=== PATIENT | female | born 1940 | race Caucasian/White ===

== ENCOUNTER 2018-04-22 17:40 | Emergency (ER) | payer MEDICARE ==
[~2018-04-22] VITALS: Ht 162.6 cm; Wt 44.9 kg
[2018-04-22 18:54] LABS: BASOPHILS ABSOLUTE AUTO 0.05 K/mm3 (0.00-0.23); BASOPHILS PERCENT AUTO 0 % (0-2); EOSINOPHILS ABSOLUTE AUTO 0.05 K/mm3 (0.00-0.68); EOSINOPHILS PERCENT AUTO 0 % (0-6); Hemoglobin 13.7 g/dL (11.5-16.0); IMMATURE GRAN ABSOLUTE AUTO 0.05 K/mm3 (0.00-0.10); IMMATURE GRAN PERCENT AUTO 0 % (0-1); LYMPHOCYTES ABSOLUTE AUTO 1.09 K/mm3 (0.84-5.20); LYMPHOCYTES PERCENT AUTO 8 % (21-46); MONOCYTES ABSOLUTE AUTO 0.96 K/mm3 (0.16-1.47); MONOCYTES PERCENT AUTO 7 % (4-13); Mean Corpuscular HGB 32.3 pg (26.0-34.0); Mean Corpuscular HGB Conc 32.6 g/dL (31.5-36.5); Mean Corpuscular Volume 99 fL (80-100); Mean Platelet Volume 9.8 fL (9.1-12.4); NEUTROPHILS ABSOLUTE AUTO 11.29 K/mm3 (1.96-9.15); NEUTROPHILS PERCENT AUTO 84 % (41-73); Platelet Count 191 K/mm3 (150-400); RDW Coefficient Variation 12.7 % (11.7-14.2); RDW Standard Deviation 46.7 fL (35.1-46.3); Red Blood Cell Count 4.24 M/mm3 (3.80-5.20); White Blood Cell Count 13.49 K/mm3 (4.00-11.30)
[2018-04-22 19:22] LABS: Alanine Aminotransfer (ALT/SGP 17 U/L (12-78); Albumin/Globulin Ratio 1.2 (0.8-1.8); Alk Phos 62 U/L (50-136); Anion Gap 8 mmol/L (6-16); Aspartate Aminotrans (AST/SGOT 14 U/L (12-37); Bilirubin, Total 0.9 mg/dL (0.1-1.0); Blood Urea Nitrogen 11 mg/dL (8-24); Bun/Creatinine Ratio 16.4 (12.0-20.0); CO2, Blood 25 mmol/L (21-32); Calcium, Blood 8.8 mg/dL (8.5-10.1); Chloride, Blood 103 mmol/L (98-108); Creatinine, Blood 0.67 mg/dL (0.40-1.00); Globulin, Blood 3.2 g/dL (2.2-4.0); Glomerular Filtration Rate >60 (60-); Glucose, Blood 122 mg/dL (70-99); Potassium, Blood 3.5 mmol/L (3.5-5.5); Sodium, Blood 136 mmol/L (136-145); Total Protein, Blood 7.2 g/dL (6.4-8.2)
[2018-04-22 19:54] LABS: Source, Urine Clean Catch
[2018-04-22 19:59] LABS: Appearance, Urine Turbid (Clear); Bilirubin, Urine Neg (Neg); Blood, Urine 5+ (Neg); Color, Urine Brown (P-Yellow); Glucose Qualitative, Urine Neg (Neg); Ketones, Urine 2+ (Neg); Leukocyte Esterase, Urine 3+ (Neg); Nitrite, Urine Pos (Neg); Protein, Urine 4+ (Neg); Urobilinogen, Urine NORM (Normal)
[2018-04-22 20:06] LABS: Red Blood Cells, Urine TNTC /hpf (0-2); White Blood Cells, Urine TNTC /hpf (0-5)
[2018-04-22 20:07] LABS: Bacteria Not Seen /hpf; Squamous Epithelial Cells Few /hpf (Few)
[2018-04-22] MEDS ORDERED: Betoptic S10 ML (21:35)
[2018-04-22] MEDS ORDERED: STIOLTO RESPIMAT4 GM INH (21:35)
[2018-04-22] MEDS ORDERED: ALBU90OI6 (21:36)
[2018-04-22] MEDS ORDERED: FLOVENT (21:36)
[2018-04-22] MEDS ORDERED: LUTEIN (21:44)
[2018-04-22] MEDS ORDERED: VITAMIN D (21:44)
[2018-04-22] MEDS ORDERED: MULTIVITAMIN (21:44)
[2018-04-22] MEDS ORDERED: Vibramycin100 MG PO (23:15)
[2018-04-22] MEDS ORDERED: Norco 5-325 Ta1 EACH PO (23:15)
[2018-04-22] MEDS ORDERED: Diflucan100 MG PO (23:15)
== END 2018-04-22 23:36 | disposition home or self-care (01) ==
LOC: ER 17:40
PROVIDERS: Physician Assistant
DX: N39.0 Urinary tract infection, site not specified (principal); Z88.8 Allergy status to other drugs, medicaments and biological substances; Z88.1 Allergy status to other antibiotic agents; Z79.899 Other long term (current) drug therapy
CPT/HCPCS: 36415; 80053; 81001; 85025; 87077; 87086; 87186; 99283

== ENCOUNTER → 2018-11-08 | Outpatient (CLI) | payer MEDICARE ==
[~2018-11-08] MED LIST: ALBU90OI6; Betoptic S10 ML; Diflucan100 MG PO; FLOVENT; LUTEIN; MULTIVITAMIN; Norco 5-325 Ta1 EACH PO; STIOLTO RESPIMAT4 GM INH; VITAMIN D; Vibramycin100 MG PO
[2018-11-08 18:17] LABS: BASOPHILS ABSOLUTE AUTO 0.05 K/mm3 (0.00-0.23); BASOPHILS PERCENT AUTO 1 % (0-2); EOSINOPHILS ABSOLUTE AUTO 0.09 K/mm3 (0.00-0.68); EOSINOPHILS PERCENT AUTO 1 % (0-6); Hematocrit 40.7 % (33.0-51.0); Hemoglobin 14.1 g/dL (11.5-16.0); IMMATURE GRAN ABSOLUTE AUTO 0.03 K/mm3 (0.00-0.10); IMMATURE GRAN PERCENT AUTO 0 % (0-1); LYMPHOCYTES ABSOLUTE AUTO 1.09 K/mm3 (0.84-5.20); LYMPHOCYTES PERCENT AUTO 16 % (21-46); MONOCYTES ABSOLUTE AUTO 1.01 K/mm3 (0.16-1.47); MONOCYTES PERCENT AUTO 14 % (4-13); Mean Corpuscular HGB 32.2 pg (26.0-34.0); Mean Corpuscular HGB Conc 34.6 g/dL (31.5-36.5); Mean Corpuscular Volume 93 fL (80-100); Mean Platelet Volume 9.9 fL (9.1-12.4); NEUTROPHILS ABSOLUTE AUTO 4.76 K/mm3 (1.96-9.15); NEUTROPHILS PERCENT AUTO 68 % (41-73); Platelet Count 216 K/mm3 (150-400); RDW Coefficient Variation 12.6 % (11.7-14.2); Red Blood Cell Count 4.38 M/mm3 (3.80-5.20); White Blood Cell Count 7.03 K/mm3 (4.00-11.30)
[2018-11-08 18:29] LABS: Anion Gap 10 mmol/L (6-16); Blood Urea Nitrogen 12 mg/dL (8-24); CO2, Blood 27 mmol/L (21-32); Chloride, Blood 95 mmol/L (98-108); Glomerular Filtration Rate >60 (60-); Glucose, Blood 131 mg/dL (70-99); Potassium, Blood 3.4 mmol/L (3.5-5.5); Sodium, Blood 132 mmol/L (136-145)
[2018-11-08 18:34] LABS: Troponin I <0.017 ng/mL (0.000-0.040)
== END | disposition home or self-care (01) ==
LOC: LAB SHORT 18:10 → LAB EV 18:10
PROVIDERS: Physician Assistant Surgical
DX: R53.83 Other fatigue (principal); N39.0 Urinary tract infection, site not specified
CPT/HCPCS: 80048; 84484; 85025; 87086; 87147

== ENCOUNTER → 2020-07-02 | Outpatient (CLI) | payer MEDICARE | END | disposition home or self-care (01) | LOC: LAB EV 14:46 → LAB SHORT 14:46 | DX: N39.0 Urinary tract infection, site not specified (principal) | CPT/HCPCS: 87086 ==

== ENCOUNTER → 2021-01-15 | Outpatient (CLI) | payer MEDICARE | END | disposition home or self-care (01) | LOC: LAB SHORT 17:21 → LAB 17:21 | DX: J02.9 Acute pharyngitis, unspecified (principal) | CPT/HCPCS: 87081 ==

== ENCOUNTER 2022-01-19 16:24 | Inpatient (IN) | payer MEDICARE ==
[~2022-01-19] VITALS: Ht 160 cm; Wt 44.7 kg
[~2022-01-19 16:24] MED LIST changes: -MULTIVITAMIN; +MULTIVITAMIN PO; -VITAMIN D; +VITAMIN D PO
[2022-01-19 17:13] LABS: BASOPHILS ABSOLUTE AUTO 0.12 K/mm3 (0.00-0.23); BASOPHILS PERCENT AUTO 1 % (0-2); EOSINOPHILS ABSOLUTE AUTO 0.08 K/mm3 (0.00-0.68); EOSINOPHILS PERCENT AUTO 1 % (0-6); Hematocrit 44.7 % (33.0-51.0); Hemoglobin 15.5 g/dL (11.5-16.0); IMMATURE GRAN ABSOLUTE AUTO 0.06 K/mm3 (0.00-0.10); IMMATURE GRAN PERCENT AUTO 0 % (0-1); LYMPHOCYTES ABSOLUTE AUTO 1.75 K/mm3 (0.84-5.20); LYMPHOCYTES PERCENT AUTO 13 % (21-46); MONOCYTES ABSOLUTE AUTO 1.03 K/mm3 (0.16-1.47); MONOCYTES PERCENT AUTO 8 % (4-13); Mean Corpuscular HGB 32.3 pg (26.0-34.0); Mean Corpuscular HGB Conc 34.7 g/dL (31.5-36.5); Mean Corpuscular Volume 93 fL (80-100); Mean Platelet Volume 9.6 fL (9.1-12.4); NEUTROPHILS PERCENT AUTO 77 % (41-73); Platelet Count 424 K/mm3 (150-400); RDW Coefficient Variation 12.2 % (11.7-14.2); RDW Standard Deviation 42.1 fL (35.1-46.3); White Blood Cell Count 13.34 K/mm3 (4.00-11.30)
[2022-01-19 17:28] LABS: Albumin, Blood 4.1 g/dL (3.4-5.0); Albumin/Globulin Ratio 1.1 (0.8-1.8); Bilirubin, Total 0.7 mg/dL (0.1-1.0); Bun/Creatinine Ratio 33.3 (12.0-20.0); Calcium, Blood 9.2 mg/dL (8.5-10.1); Creatinine, Blood 0.45 mg/dL (0.40-1.00); Globulin, Blood 3.6 g/dL (2.2-4.0); Potassium, Blood 4.5 mmol/L (3.5-5.5); Total Protein, Blood 7.7 g/dL (6.4-8.2)
[2022-01-19 23:05] LABS: Influenza A, PCR NEGATIVE (NEGATIVE); Influenza B, PCR NEGATIVE (NEGATIVE); Resp Syncytial Virus, PCR NEGATIVE (NEGATIVE); SARS-Cov-2 (COVID-19) PCR, MMC NEGATIVE (NEGATIVE)
[2022-01-20] MEDS ORDERED: VITAMIN D310 MC4 (01:48)
[2022-01-20] MEDS ORDERED: PRESERVISION A1 EAC2 (01:49)
[2022-01-20] MEDS ORDERED: Vitamin C100 M1 PO (01:49)
--- NOTE | 2022-01-20 04:31 | NUR ---
NEW ADMIT FROM ED. A&OX4. VSS. ASSIST X 1 TO BEDSIDE COMMODE. SOB AT REST AND ON EXERTION. 95% ON 3L NC. HAS TELEMETRY, TACHYCARDIC 107 TO 117. C/O PAIN TO MID AND LOWER BACK. PRN TRAMADOL AND TYLENOL GIVEN. BED ALARM ON.
[2022-01-20 04:36] LABS: BASOPHILS ABSOLUTE AUTO 0.02 K/mm3 (0.00-0.23); BASOPHILS PERCENT AUTO 0 % (0-2); EOSINOPHILS PERCENT AUTO 0 % (0-6); Hemoglobin 14.6 g/dL (11.5-16.0); IMMATURE GRAN ABSOLUTE AUTO 0.05 K/mm3 (0.00-0.10); IMMATURE GRAN PERCENT AUTO 1 % (0-1); LYMPHOCYTES ABSOLUTE AUTO 0.49 K/mm3 (0.84-5.20); LYMPHOCYTES PERCENT AUTO 5 % (21-46); MONOCYTES ABSOLUTE AUTO 0.03 K/mm3 (0.16-1.47); MONOCYTES PERCENT AUTO 0 % (4-13); Mean Corpuscular HGB 31.6 pg (26.0-34.0); Mean Corpuscular Volume 93 fL (80-100); Mean Platelet Volume 9.7 fL (9.1-12.4); NEUTROPHILS ABSOLUTE AUTO 10.27 K/mm3 (1.96-9.15); NEUTROPHILS PERCENT AUTO 95 % (41-73); Platelet Count 367 K/mm3 (150-400); RDW Coefficient Variation 12.1 % (11.7-14.2); RDW Standard Deviation 41.6 fL (35.1-46.3); Red Blood Cell Count 4.62 M/mm3 (3.80-5.20); White Blood Cell Count 10.86 K/mm3 (4.00-11.30)
[2022-01-20 04:53] LABS: Bun/Creatinine Ratio 38.2 (12.0-20.0); Calcium, Blood 9.3 mg/dL (8.5-10.1); Creatinine, Blood 0.42 mg/dL (0.40-1.00); Potassium, Blood 4.4 mmol/L (3.5-5.5)
--- NOTE | 2022-01-20 16:22 | NUR ---
SHIFT SUMMARY PATIENT IS ALERT AND ORIENTED. PATIENT HAS HAD NO ACUTE EVENTS THIS SHIFT. PATIENT HAS HAD NO COMPLAINTS OF PAIN , SOB, PATIENT HAS HAD NAUSEA AND FEELINGS OF VOMITTING. PATIENT IS ADMITTED FOR COPD EXACERBATION. PATIENT IS ON 3L NC WHICH IS HER BASELINE. PATIENT IS A STANDBY ASSIST. BED IN LOCKED AND LOWEST POSITION. CALL LIGHT IN PLACE. WILL MONITOR UNTIL SHIFT CHANGE.
[2022-01-20 18:31] LABS: Bun/Creatinine Ratio 33.1 (12.0-20.0); Calcium, Blood 9.3 mg/dL (8.5-10.1); Creatinine, Blood 0.33 mg/dL (0.40-1.00); Potassium, Blood 4.6 mmol/L (3.5-5.5)
--- NOTE | 2022-01-20 18:43 | NUR ---
NURSE NOTE NOTIFIED DR NAPOLES ABOUT CRITICAL LOW SODIUM OF 119. RECEIVED ADDITIONAL ORDERS AND PUT NEW ORDERS IN. DR NAPOLES WILL TALK TO NURSING ALIGNMENT SPECIALIST TO POSSIBLE PCU TRANSFER.
--- NOTE | 2022-01-20 19:33 | NUR ---
PROFESSOR OF BIOLOGICAL SCIENCES INITIATION SEE PROFESSOR OF BIOLOGICAL SCIENCES INITIATION INTERVENTION
[2022-01-20 20:09] LABS: Bun/Creatinine Ratio 25.1 (12.0-20.0); Creatinine, Blood 0.44 mg/dL (0.40-1.00); Phosphorus, Blood 2.9 mg/dL (2.5-4.9); Potassium, Blood 4.7 mmol/L (3.5-5.5)
[2022-01-20 23:45] LABS: Creatinine, Blood 0.43 mg/dL (0.40-1.00); Potassium, Blood 4.5 mmol/L (3.5-5.5)
--- NOTE | 2022-01-21 01:18 | NUR ---
PT. TRANSFERRED TO ICU A RAPID RESPONSE BECAUSE PT. WAS NOT RESPONSIVE ON MEDICAL FLOOR. PT. IS ON 3L NC WHICH IS BASELINE AND HAS VS WNL. PT. IS NOT RESPONDING TO VERBAL OR PHYSICAL STIMULI.
[2022-01-21 04:05] LABS: Magnesium, Blood 2.2 mg/dL (1.6-2.4)
[2022-01-21 04:06] LABS: Bun/Creatinine Ratio 30.7 (12.0-20.0); Calcium, Blood 9.1 mg/dL (8.5-10.1); Creatinine, Blood 0.42 mg/dL (0.40-1.00); Potassium, Blood 4.5 mmol/L (3.5-5.5)
--- NOTE | 2022-01-21 05:37 | NUR ---
SHIFT SUMMARY: PT. CAME IN OVERNIGHT SHORTLY AFTER SHIFT CHANGE ALTERED AND NOT RESPONDING TO VERBAL DIRECTIONS. PT. HAD BEEN GIVEN A MEDICATION ON THE FLOOR AND BECAME UNRESPONSIVE. PT. ALSO HAD A SODIUM LEVEL OF 119 UPON ARRIVAL, WHICH HAS SINCE BEEN CORRECTED TO 130 WITH NS. PT. IS NOW A&0 X4 AND IS NOT HAVING ANY PERIODS OF ALTERED STATUS. PT. IS STILL ON 3L NC WHICH IS BASELINE AT HOME AND OTHERWISE HAS NO COMPLAINTS AT THIS TIME.
--- NOTE | 2022-01-21 08:30 | NUR ---
AM NOTE... ASSUMED CARE OF PT AT 0700 THE PT IS A&Ox4 AND SBA UP TO THE [facility]. THE PT IS ON 3L NC WITH O2 SATS>90% L/S COARSE T/O DIM IN THE BASES, RR IS IN THE 20'S. THE PT IS IN SINUS TACH IN THE 100'S-110'S. BP IS STABLE. NO EDEMA IS NOTED ON ASSESSMENT. BT PRESENT AND HYPOACTIVE ABD IS SOFT AND NONTENDER TO PALPATION. THE PT CURRENTLY DENIES ANY N/V. THE PT WAS ABLE TO AMBULATE TO THE [facility] AND THEN BACK TO BED WITH MINIMAL EFFORT. THE PT DID NEED A FEW MINUTES TO RECOVER FROM SOB WITH EXERTION. THE PT TOLD THIS RN THAT THE INSIDE OF HER MOUTH HURT, UPON ASSESSMENT THIS RN NOTED WHITE PATCHES T/O HER MOUTH AND THE INSIDE OF HER CHEEKS. WILL CONITNUE TO MONITOR.
[2022-01-21 09:25] LABS: Bun/Creatinine Ratio 31.8 (12.0-20.0); Calcium, Blood 9.4 mg/dL (8.5-10.1); Creatinine, Blood 0.47 mg/dL (0.40-1.00); Potassium, Blood 4.6 mmol/L (3.5-5.5)
[2022-01-21 12:55] LABS: Bun/Creatinine Ratio 37.5 (12.0-20.0); Calcium, Blood 9.2 mg/dL (8.5-10.1); Creatinine, Blood 0.48 mg/dL (0.40-1.00); Potassium, Blood 4.7 mmol/L (3.5-5.5)
--- NOTE | 2022-01-21 15:31 | NUR ---
PT TRANSFER.... PT IS TO TRANSFER TO THE MEDICAL FLOOR. REPORT GIVEN TO MEDICAL FLOOR RN. THE PT'S VS STABLE AT THIS TIME. ALL OF THE PT'S BELONGINGS HAVE BEEN PACKED TO BE SENT WITH THE PT. PT IS FINISHING HER LUNCH AND THEN WILL BE TAKEN TO HER NEW ROOM 306. FAMILY HAS BEEN NOTIFIED OF THE TRANSFER. WILL CONTINUE TO MONITOR UNTIL PT TRANSFER TO MEDICAL FLOOR.
--- NOTE | 2022-01-21 17:01 | NUR ---
PT UPDATE... PRIOR TO THE PT'S TRANSFER TO MEDICAL FLOOR THE PT REQUESTED TO USE THE BSC. THE PT WAS SBA TO THE BSC, ONCE ON THE BSC THE PT'S HR INCREASED TO THE 150'S-160'S SINUS TACH. THE PT HAD INCREASED SOB BUT DENIED ANY CHEST PAIN/PALPITATIONS. THE PT'S O2 SATS WERE 88% BUT RECOVERED WITH PURSED LIP BREATHING. ONCE BACK INTO BED THE PT'S HR DID NOT QUICKLY RECOVER LIKE PREVIOUS EPISODES OF THIS TACHYCARDIA SHE STARTED TO SUSTAIN SINUS TACH IN THE 130'S-140'S. PROVIDER WAS NOTIFIED, ORDERS FOR AN EKG WERE GIVEN AND AN EKG WAS OBTAINED. THE PT'S HEART RATE SLOWLY IMPROVED AND IS CURRENTLY SUSTAINING THE HIGH 120'S. BP IS STABLE. TRANSFER TO MEDICAL FLOOR ON STANDBY FOR A FEW HOURS TO SEE HOW THE PT RECOVERS. WILL CONTINUE TO MONITOR.
[2022-01-21 17:55] LABS: Bun/Creatinine Ratio 50.2 (12.0-20.0); Calcium, Blood 8.8 mg/dL (8.5-10.1); Creatinine, Blood 0.44 mg/dL (0.40-1.00); Potassium, Blood 4.5 mmol/L (3.5-5.5)
--- NOTE | 2022-01-21 18:30 | NUR ---
SHIFT SUMMARY.... THE PT IS NO LONGER MEDICAL STATUS D/T THE EPISODE OF HIGH HEART RATE. PROVIDER NOTIFIED AND CHANGED TO PCU STATUS. THE PT'S VS STABLE. WILL CONTINUE TO MONITOR.
--- NOTE | 2022-01-21 19:31 | NUR ---
ASSUMED CARE. AOX3. FAMILY JUST LEFT FOR THE EVENING. DENIES ANY PAIN OR DISCOMFORT. ON 3L NC WITH SATS MID 90'S. TACHYCARDIC IN THE 110-120'S. DENIES ANY CHEST PAIN OR DISCOMFORT. YING WILKES IN ROOM FOR PLACEMENT OF IV. TACHYPNEA IN THE 20-30'S.
--- NOTE | 2022-01-21 20:15 | NUR ---
SPOKE TO DR. BUCKLEY R/T SODIUM, TACHYCARDIA, HYPERTENSTION AND ORDER FOR FLUIDS. DR. BUCKLEY DOES NOT WANT TO ORDER FLUIDS AT THIS TIME SHE FEELS FLUIDS EARLIER TODAY DROPPED HER SODIUM BACK DOWN. FOR NOW WE ARE TO MONITOR AND SEE IF HER SODIUM COMES UP ON ITS OWN. REPEAT SODIUM DRAW ORDERED. MONITOR BLOOD PRESSURE AND HR.
--- NOTE | 2022-01-21 22:25 | NUR ---
PT UP TO BSC AND BACK TO BED, DURING AT WHICH HER HR JUMPED TO 160, SOB NOTED, AND RECOVERY WAS ESTIMATED [address] BUCKLEY REGARDING TACHYCARDIA, ACTIVITY INTOLERACE. PT DOES REPORT SOME ANXIETY AND INABILITY TO SLEEP. GAVE MELATONIN. PLAN IS TO SEE IF THAT WORKS IF NOT TO GIVE HER A CALL BACK. DR. BUCKLEY DID STOP BY ROOM TO TALK WITH THE PATIENT.
[2022-01-22 03:34] LABS: Bun/Creatinine Ratio 42.7 (12.0-20.0); Calcium, Blood 8.9 mg/dL (8.5-10.1); Creatinine, Blood 0.45 mg/dL (0.40-1.00); Magnesium, Blood 2.1 mg/dL (1.6-2.4); Potassium, Blood 4.4 mmol/L (3.5-5.5)
--- NOTE | 2022-01-22 05:37 | NUR ---
SHIFT SUMMARY: AOX3. MILD ANXIETY AT START OF SHIFT THAT CALMED DOWN AFTER TAKING MELATONIN. LS COARSE WITH DIM BASES, OCCATIONAL COUGH, NO PRODUCTION TONIGHT. DYSPNEA WITH EXERTION, ACTIVITY INTOLERANCE NOTED. HR WILL RAISE TO 160'S WITH TRANSFER TO [facility]. 130-140'S SOMETIMES WHEN SHE MOVES IN BED. SINCE SHE TOOK MELATONIN HR HAS DECREASED TO 80-90'S. O2 WAS INCREASED TO 5L NC WHEN SHE SLEPT BUT NOW IS BACK DOWN TO 3L. NEW IV PLACED TO LEFT UPPER ARM. SODIUM REMAINS AT 130. NO OTHER ACUTE CHANGES TO NOTE. CALL LIGHT IN REACH.
--- NOTE | 2022-01-22 16:31 | NUR ---
SHIFT SUMMARY NO ACUTE CHANGES THIS SHIFT. PT REMAINS ALERT AND ORIENTED WHEN AWAKE. PT WITH PERIODS OF NAPPING THIS AFTERNOON. PT WITH VISITORS IN AND OUT THROUGHOUT THE DAY. VITAL SIGNS STABLE. PT ON 3L O2 NC. PT REPORTS DYSPNEA WITH EXERTION TO TOILET, BUT SPO2 REMAINS STABLE WITH AMBULATION. IV SALINE LOCKED. PT ABLE TO REPOSITION SELF IN BED FOR COMFORT. WILL CONTINUE TO MONITOR AND REPORT OFF TO ONCOMING RN.
--- NOTE | 2022-01-22 19:40 | NUR ---
RECEIVED REPORT FROM CHUNG REGAN. PT IS MEDICAL STATUS BUT BEING MONITORED ON TELE STILL. SHE IS A&O X4, NO C/O PAIN. CURRENTLY ON 3L NC, WHICH IS BASELINE AT HOME. SHE IS A POSSIBLE DC TOMORROW.
--- NOTE | 2022-01-22 23:11 | NUR ---
PT C/O FEELING CONSIPATED- PRN MIRALAX AND COLACE GIVEN EARLIER IN THE SHIFT. PT STATED THAT SHE STARTED FEELING HER STOMACH CRAMP AND BELIEVED THAT SHE MAY HAVE A BLADDER INFECTION. C/O PAIN 8-11/26 AND REQUESTED SOMETHING "STRONGER" THAN TYLENOL. HEATING PAD APPLIED TO ABD. UPDATED DR. BUCKLEY ABOUT ALL OF THE INFORMATION FROM ABOVE. UA WAS ORDERED AND SOME TRAMADOL. TRAMADOL GIVEN PER EMAR. NEXT, PT ALSO REQUESTED A SUPPOSITORY TO HELP. WILL CONTINUE TO MONITOR
--- NOTE | 2022-01-23 | NUR ---
ATTEMPTED TO CALL DR. BUCKLEY TO UPDATE HER ABOUT PT. MD NOT AVAILABLE. WILL ATTEMPT TO CALL DR. GUERRIER
--- NOTE | 2022-01-23 01:00 | NUR ---
ATTEMPTED TO CALL DR. GUERRIER TO UPDATE ABOUT PT'S ABD PAIN. PT'S ABD IS DISTENDED BUT HAS BOWEL SOUNDS THROUGHOUT, SHE IS STILL C/O 9/10 PAIN AND CRAMPING, SHE'S NAUSEOUS BUT NOT VOMITTING.
--- NOTE | 2022-01-23 02:01 | NUR ---
PT LOOKS LIKE SHE'S RESTING MORE COMFORTABLY IN BED, REQUESTING BREATHING TREATMENT
--- NOTE | 2022-01-23 06:32 | NUR ---
SHIFT SUMMARY: PT A&O X4 BUT DID NOT SLEEP AT ALL. SHE REMAINS ON 3L NC WITH O2 SATS IN MID 90S. OTHER VS STABLE AT THIS POINT. PT C/O 8-10/10 ABDOMINAL PAIN THOUGHOUT THE NIGHT THAT WAS NOT RELIEVED BY ANYTHING. PRN MIRALAX, COLACE, DULCOLAX, TRAMADOL, AND A MINERAL OIL ENEMA WERE GIVEN PER MAR AND PT HAD A VERY SMALL HARD BM.
[2022-01-23 08:13] LABS: BASOPHILS ABSOLUTE AUTO 0.06 K/mm3 (0.00-0.23); BASOPHILS PERCENT AUTO 0 % (0-2); EOSINOPHILS ABSOLUTE AUTO 0.01 K/mm3 (0.00-0.68); EOSINOPHILS PERCENT AUTO 0 % (0-6); Hematocrit 44.9 % (33.0-51.0); Hemoglobin 15.4 g/dL (11.5-16.0); IMMATURE GRAN ABSOLUTE AUTO 0.18 K/mm3 (0.00-0.10); IMMATURE GRAN PERCENT AUTO 1 % (0-1); LYMPHOCYTES ABSOLUTE AUTO 0.86 K/mm3 (0.84-5.20); LYMPHOCYTES PERCENT AUTO 3 % (21-46); MONOCYTES ABSOLUTE AUTO 1.32 K/mm3 (0.16-1.47); MONOCYTES PERCENT AUTO 4 % (4-13); Mean Corpuscular HGB Conc 34.3 g/dL (31.5-36.5); Mean Corpuscular Volume 93 fL (80-100); Mean Platelet Volume 9.9 fL (9.1-12.4); NEUTROPHILS ABSOLUTE AUTO 27.59 K/mm3 (1.96-9.15); NEUTROPHILS PERCENT AUTO 92 % (41-73); Platelet Count 309 K/mm3 (150-400); RDW Coefficient Variation 12.1 % (11.7-14.2); Red Blood Cell Count 4.81 M/mm3 (3.80-5.20); White Blood Cell Count 30.02 K/mm3 (4.00-11.30)
--- NOTE | 2022-01-23 08:21 | NUR ---
REPORT TO MEDICAL FLOOR RN, ALL BELONGINGS GATHERED FOR TRANSFER.
[2022-01-23 08:27] LABS: Bun/Creatinine Ratio 47.7 (12.0-20.0); Creatinine, Blood 0.48 mg/dL (0.40-1.00); Potassium, Blood 4.4 mmol/L (3.5-5.5)
[2022-01-23 15:30] LABS: Base Excess Venous 12.3 mmol/L; Bicarbonate Venous 34.3 mmol/L (24.0-30.0); PCO2 Venous 47.3 mmHg (38-42); pH Blood Venous 7.49 (7.34-7.37)
[2022-01-24 03:44] LABS: Source, Urine Clean Catch
[2022-01-24 03:46] LABS: Bilirubin, Urine Neg (Neg); Blood, Urine 3+ (Neg); Glucose Qualitative, Urine Neg (Neg); Ketones, Urine 1+ (Neg); Leukocyte Esterase, Urine Neg (Neg); Nitrite, Urine Neg (Neg); Protein, Urine 2+ (Neg); Specific Gravity, Urine 1.005 (1.003-1.022); Urobilinogen, Urine NORM (Normal); pH, Urine 6.5 (5.0-8.0)
[2022-01-24 03:54] LABS: Appearance, Urine Clear (Clear); Bacteria Not Seen /hpf; Color, Urine Yellow (P-Yellow); Squamous Epithelial Cells Rare /hpf (Few); White Blood Cells, Urine Not Seen /hpf (0-5)
[2022-01-24 05:48] LABS: BASOPHILS PERCENT AUTO 0 % (0-2); EOSINOPHILS ABSOLUTE AUTO 0.01 K/mm3 (0.00-0.68); EOSINOPHILS PERCENT AUTO 0 % (0-6); Hematocrit 41.4 % (33.0-51.0); Hemoglobin 14.4 g/dL (11.5-16.0); IMMATURE GRAN ABSOLUTE AUTO 0.13 K/mm3 (0.00-0.10); IMMATURE GRAN PERCENT AUTO 1 % (0-1); LYMPHOCYTES ABSOLUTE AUTO 0.62 K/mm3 (0.84-5.20); LYMPHOCYTES PERCENT AUTO 2 % (21-46); MONOCYTES ABSOLUTE AUTO 0.79 K/mm3 (0.16-1.47); MONOCYTES PERCENT AUTO 3 % (4-13); Mean Corpuscular HGB 32.4 pg (26.0-34.0); Mean Corpuscular HGB Conc 34.8 g/dL (31.5-36.5); Mean Corpuscular Volume 93 fL (80-100); Mean Platelet Volume 10.4 fL (9.1-12.4); NEUTROPHILS ABSOLUTE AUTO 25.86 K/mm3 (1.96-9.15); NEUTROPHILS PERCENT AUTO 94 % (41-73); Platelet Count 209 K/mm3 (150-400); RDW Coefficient Variation 12.3 % (11.7-14.2); RDW Standard Deviation 41.8 fL (35.1-46.3); Red Blood Cell Count 4.45 M/mm3 (3.80-5.20); White Blood Cell Count 27.51 K/mm3 (4.00-11.30)
--- NOTE | 2022-01-24 06:15 | NUR ---
VP CUSTOMER SERVICE SUMMARY: A&Ox4. PLEASANT AND COOPERATIVE WITH CARE. CALLS APPROPRIATELY AND IS ABLE TO COMMUNICATE NEEDS. TELE SINUS TACH WITH RUN OF SVT; ON-CALL HOSPITALIST ORDERED LOPRESSOR 5MG IV. TELE MONITORING AND PT NOTED TO HAVE LOWERED SUSTAINED HR. ABDOMINAL IMAGING YESTERDAY YIELDED POSITIVE FOR SMALL BOWEL OBSTRUCTION. WILL HAVE SURGICAL CONSULT TODAY TO DETERMINE IF SURGERY IS RECOMMENDED. URINE SAMPLE OBTAINED AND SENT TO LAB. ABx CHANGED AND ADMINISTERED AT 0000 AND 0600. IV FENTANYL 25-50MCG Q4H PRN ORDERED FOR PAIN SINCE NPO AND UNABLE TO TAKE TRAMADOL. GIVEN TWO DOSES T/O SHIFT AND ONE DOSE OF REGLAN FOR NAUSEA/BLOATING. C/O ABDOMINAL PAIN. USING HEATING PAD. FLUIDS RUNNING @ 75mL/HR x 1.[address] ON COCCYX. MAINTAINING SPO2 >95% ON 3L O2 VIA NC. WILL REPORT TO ONCOMING RN.
[2022-01-24 06:21] LABS: Bun/Creatinine Ratio 35.2 (12.0-20.0); Calcium, Blood 9.1 mg/dL (8.5-10.1); Creatinine, Blood 0.6 mg/dL (0.40-1.00); Potassium, Blood 4.5 mmol/L (3.5-5.5)
[2022-01-24] MEDS ORDERED: LATA.005SO (15:59)
--- NOTE | 2022-01-24 18:07 | NUR ---
SUMMARY PT SITTING UP IN THE CHAIR AT THE BEDSIDE, PT HAS BEEN PLEASANT AND COOPERATIVE WITH CARE, MED PER EMAR FOR PAIN AND NAUSEA, FAMILY HAS BEEN IN TO VISIT, NO COMPLAINTS, VSS, WILL CONT TO MONITOR
--- NOTE | 2022-01-25 05:07 | NUR ---
CONSUMER EDUCATION SPECIALIST SUMMARY: A&Ox4. PLEASANT AND COOPERATIVE WITH CARE. CALLS APPROPRIATELY AND IS ABLE TO COMMUNICATE NEEDS EFFECTIVELY. STRUGGLED WITH NAUSEA AND DRY HEAVES T/O SHIFT. OFFERED NG TUBE DISCUSSED BY DR QUINONEZ AND SHE DECLINES. CALL TO DR WAYNE AND PRN ZOFRAN 4MG Q6H PRN ORDER OBTAINED AND ADMINISTERED. PRN FENTANYL IV GIVEN FOUR TIMES T/O SHIFT. LARGE BRUISE RIGHT ANTICUBITAL REGION D/T IV GOING BAD 01/23/22. IV IN LEFT FA WENT BAD THIS EVENING. CHUNG BOWSER PLACED POWERGLIDE IN DICK. PATENT AND FLUSHES. SALINE LOCKED. TELE SINUS TACH W/ PVCs BUT BACK DOWN TO SINUS RHYTHM. CONTINUES WITH BOWEL REST--ONLY CHIPS AND SIPS. O2 3L/MIN VIA NC. MEPILEX ON COCCYX REPLACED AND NEW PLACEMENT OF ONE ON BONY PROMINENCES OF SPINE ABOVE COCCYX. WILL REPORT TO ONCOMING RN.
--- NOTE | 2022-01-25 18:37 | NUR ---
SHIFT SUMMARY PATIENT MEDICATED X3 FOR PAIN, X3 FOR NAUSEA, DENIES SHORTNESS OF BREATH. PATIENT IS ON 3L VIA N/C. THIS IS BASELINE. PATIENT IS A SBA TO THE [facility]. PATIENT IS ON TELE, RUNNING ST IN THE LOW 100'S TODAY. PATIENT STARTED ON CLINIMIX INTO POWERGLIDE. PATIENT NPO EXCEPT FOR SIPS AND CHIPS. PATIENT UNABLE TO TOLERATE ANY PO MEDICATIONS TODAY. PATIENT HAVING INCREASED PAIN AND NAUSEA. PER DR. QUINONEZ, PLACE AND NG. PATIENT AGREEABLE. PATIENT TOLERATED VERY WELL. PLACED BY PAOLA CHARGE NURSE. AIR HEARD WHEN FLUSHED. CONNECTED TO LIS, IMMEDIATE RETURN OF 700MLS. PATIENT REPORTS FEELING LIKE SHE CANNOT SWALLOW AND THERE IS SOMETHING IN HER THROAT. NUMBING SPRAY AND JELLY WAS USED. EDUCATED PATIENT ON NG TUBE. PATIENT VISITED TODAY. PATIENT IS VERY PLEASANT AND COOPERATIVE WITH CARE.
--- NOTE | 2022-01-26 04:18 | NUR ---
SUMMARY A&OX4, COMPLAIN OF ABDOMINABLE PAIN THROUGHOUT NIGHT, IV INFUSING VOIDED WITH STANDBY ASSIST, PATIENT RESTING IN BED AT THIS TIME.
[2022-01-26 05:40] LABS: BASOPHILS ABSOLUTE AUTO 0.05 K/mm3 (0.00-0.23); BASOPHILS PERCENT AUTO 0 % (0-2); EOSINOPHILS ABSOLUTE AUTO 0.01 K/mm3 (0.00-0.68); EOSINOPHILS PERCENT AUTO 0 % (0-6); Hematocrit 38.7 % (33.0-51.0); Hemoglobin 13.2 g/dL (11.5-16.0); IMMATURE GRAN ABSOLUTE AUTO 0.23 K/mm3 (0.00-0.10); IMMATURE GRAN PERCENT AUTO 1 % (0-1); LYMPHOCYTES ABSOLUTE AUTO 0.69 K/mm3 (0.84-5.20); LYMPHOCYTES PERCENT AUTO 3 % (21-46); MONOCYTES ABSOLUTE AUTO 1.22 K/mm3 (0.16-1.47); MONOCYTES PERCENT AUTO 5 % (4-13); Mean Corpuscular HGB 32.2 pg (26.0-34.0); Mean Corpuscular HGB Conc 34.1 g/dL (31.5-36.5); Mean Corpuscular Volume 94 fL (80-100); Mean Platelet Volume 10.4 fL (9.1-12.4); NEUTROPHILS ABSOLUTE AUTO 23.12 K/mm3 (1.96-9.15); NEUTROPHILS PERCENT AUTO 91 % (41-73); Platelet Count 136 K/mm3 (150-400); RDW Coefficient Variation 12.5 % (11.7-14.2); RDW Standard Deviation 43.6 fL (35.1-46.3); White Blood Cell Count 25.32 K/mm3 (4.00-11.30)
[2022-01-26 06:05] LABS: Alanine Aminotransfer (ALT/SGP 22 U/L (12-78); Albumin, Blood 2.4 g/dL (3.4-5.0); Albumin/Globulin Ratio 0.7 (0.8-1.8); Alk Phos 75 U/L (50-136); Anion Gap 7 mmol/L (6-16); Aspartate Aminotrans (AST/SGOT 17 U/L (12-37); Bilirubin, Total 0.6 mg/dL (0.1-1.0); Blood Urea Nitrogen 19 mg/dL (8-24); Bun/Creatinine Ratio 41.9 (12.0-20.0); CO2, Blood 40 mmol/L (21-32); Calcium, Blood 8.8 mg/dL (8.5-10.1); Chloride, Blood 88 mmol/L (98-108); Creatinine, Blood 0.45 mg/dL (0.40-1.00); Globulin, Blood 3.6 g/dL (2.2-4.0); Glomerular Filtration Rate 98 (60-); Glucose, Blood 177 mg/dL (70-99); Magnesium, Blood 2.2 mg/dL (1.6-2.4); Potassium, Blood 2.9 mmol/L (3.5-5.5); Sodium, Blood 135 mmol/L (136-145); Triglycerides 110 mg/dL (30-160)
--- NOTE | 2022-01-26 18:42 | NUR ---
SHIFT SUMMARY ASSUMED CARE AT 1545. NO ACUTE CHANGES SINCE ASSUMING CARE. PATIENT IS ALERT, ORIENTED, ABLE TO MAKE HER NEEDS KNOWN. NG TUBE IN PLACE, LOW INT SUCTION. PICC LINE PLACED TODAY IN LEFT UPPER ARM. PATIENT IS A ONE PERSON STANDBY ASSIST TO THE COMMODE. ENCOURAGED OUT OF BED ACTIVITY TO THE CHAIR TOELRATED. CLINIMIX RUNNING PER ORDERS. BED LOW AND LOCKED, CALL LIGHT WITHIN REACH, WILL CONT TO MONITOR UNTIL REPORT GIVEN TO ONCOMING RN.
--- NOTE | 2022-01-27 04:26 | NUR ---
SHIFT SUMMARY PT HAS BEEN UP TO THE BEDSIDE COMMODE SEVERAL TIMES TO TRY AND HAVE A BM, NO BM, BUT SHE IS PASSING GAS. SHE IS CONTINUEING TO HAVE COPIOUS OUTPUT FROM HER NG TUBE. SHE HAS COMPLAINED OF ABD PAIN AND WAS MEDICATED PER MAR. PT HAS BEEN TOLERATING CLINAMIX AND ABX. SOME PT EDUCATION PROVIDED ON WHY PT MUST REMIN NPO. BED IN LOWEST POSITION AND CALL LIGHT IN REACH
[2022-01-27 06:07] LABS: BASOPHILS ABSOLUTE AUTO 0.04 K/mm3 (0.00-0.23); BASOPHILS PERCENT AUTO 0 % (0-2); EOSINOPHILS ABSOLUTE AUTO 0.05 K/mm3 (0.00-0.68); EOSINOPHILS PERCENT AUTO 0 % (0-6); Hematocrit 37.3 % (33.0-51.0); Hemoglobin 12.4 g/dL (11.5-16.0); IMMATURE GRAN PERCENT AUTO 1 % (0-1); LYMPHOCYTES ABSOLUTE AUTO 1.02 K/mm3 (0.84-5.20); LYMPHOCYTES PERCENT AUTO 5 % (21-46); MONOCYTES ABSOLUTE AUTO 2.18 K/mm3 (0.16-1.47); MONOCYTES PERCENT AUTO 10 % (4-13); Mean Corpuscular HGB 32.5 pg (26.0-34.0); Mean Corpuscular HGB Conc 33.2 g/dL (31.5-36.5); Mean Corpuscular Volume 98 fL (80-100); Mean Platelet Volume 10.7 fL (9.1-12.4); NEUTROPHILS ABSOLUTE AUTO 18.18 K/mm3 (1.96-9.15); NEUTROPHILS PERCENT AUTO 84 % (41-73); Platelet Count 121 K/mm3 (150-400); RDW Coefficient Variation 12.8 % (11.7-14.2); RDW Standard Deviation 45.4 fL (35.1-46.3); Red Blood Cell Count 3.82 M/mm3 (3.80-5.20); White Blood Cell Count 21.67 K/mm3 (4.00-11.30)
[2022-01-27 06:27] LABS: Albumin, Blood 2.4 g/dL (3.4-5.0); Albumin/Globulin Ratio 0.7 (0.8-1.8); Bilirubin, Total 0.5 mg/dL (0.1-1.0); Bun/Creatinine Ratio 50.3 (12.0-20.0); Calcium, Blood 8.8 mg/dL (8.5-10.1); Creatinine, Blood 0.44 mg/dL (0.40-1.00); Globulin, Blood 3.6 g/dL (2.2-4.0); Potassium, Blood 3.9 mmol/L (3.5-5.5)
--- NOTE | 2022-01-27 18:34 | NUR ---
PATIENT PAINFUL WITH BOWEL OBSTRUCTION. NG TUBE IN PLACE. RETURN IS BROWN/GREEN. TPN RUNNING AT 75. NEW TYPE OF TPN ORDERED THIS SHIFT- PATIENT WBC HIGH. IV ABX IN PLACE. COCCYX HAS PRESSURE AREA THAT WAS COVERED TO AVOID SKIN BREAKDOWN BUT PATIENT HAS HAD LOOSE FREQUENT DIARRHEA THIS SHIGT. DRESSING WERE CHANGED. AND THEN REMOVED WHEN LOOSE BM CONTINUED AND THEY BECAME SATURATED. PAIN IS CONTROLLED WITH PAIN MED, BUT PATIENT PAIN RETURNS QUICKLY. NAUSEA AND SOME SMALL EMISIS OCCUR, WITH STOMACH CRAMPS. REGLAN WAS GIVEN AND SOMEWHAT EFFECTIVE. HEART RATE TACKY, IRREGULAR. ATTEMPTING TO COLLECT SPUTUM STILL. PATIENT HAD SMALL BOWEL STUDY THIS SHIFT. SEE IMAGING.
--- NOTE | 2022-01-28 07:17 | NUR ---
SHIFT SUMMARY; PT WITH NO ACUTE CHANGES OVERNIGHT. PT REMIANS PAINFUL WITH BOWEL MOVEMENTS, NG TUBE IN PLACE. PT STATES THAT SHE HAS SHARP PAINS IN HER LOWER ABDOMEN AND HER LOWER BACK ACHES "LIKE LABORING". PT WITH A TOTAL VOLUME OF 775ML FROM HER NG TUBE. PPN REMAINED RUNNING IN THE PTS POWER PICC LINE. PT REQUESTED HER DILUADID Q4H, PT STATES SHE GETS GOOD REST FROM THE DILAUDID FOR ABOUT 3 HOURS. PT REMIANED ON 3L O2 VIA NC THROUGHOUT THE NIGHT WITH O2 SATS GREATER THAN 90%. PT WITH FREQUENT LOOSE STOOLS THROUGHOUT THE NIGHT. PT CURRENTLY RESTING IN BED WITH THE BED IN THE LOWEST POSITION AND THE CALL LIGHT AT THE BEDSIDE.
[2022-01-28 10:16] LABS: Mean Platelet Volume 10.6 fL (9.1-12.4); Platelet Count 142 K/mm3 (150-400)
--- NOTE | 2022-01-28 18:08 | NUR ---
PATIENT APPEARS TO BE DOING BETTER THIS SHIFT. NG TUBE WAS REMOVED THIS AM. DIET ADVANCED TO FULL LIQUID. SHE EATS ONLY SMALL AMOUNT, BUT APPEARS TO BE TOLERATING WELL. LS DIMINISHED, UNABLE TO COLLECT SPUTUM SAMPLE SHE ISN'T ABLE TO COUGH THE SPUTUM UP. BS HYPERACTIVE WITH SOME LOOSE BM AGAIN THIS SHIFT. TPN RUNNING AT 75. SPINAL PRESSURE AREA COVERED WITH DRESSING. IV DILAUDED GIVEN PER REQUEST EVERY 4 HOURS. PAIN IS IN LOWER BACK THIS SHIFT.
--- NOTE | 2022-01-29 04:17 | NUR ---
SHIFT SUMMARY; PT WITH NO ACUTE CHANGES OVERNIGHT. PT REMIANS ON 3L NC SATING >90%. PT TOLERATED FULL LIQUID DIET WELL THIS EVENING, PT DENIED N/V. PT CONTINUES TO REQUEST DILAUDID Q4H FOR ABDOMINAL/BACK PAIN, IT SEEMS THAT THE DILAUDID PROVIDES HER RELIEF, BUT WARES OFF QUICKLY. TPN IS STILL RUNNING AT 75ML/HR. PT IS CURRENTLY UP IN THE CHAIR WATCHING TV. THE CALL LIGHT IS IN THE PTS LAP.
[2022-01-29 05:58] LABS: BASOPHILS ABSOLUTE AUTO 0.11 K/mm3 (0.00-0.23); BASOPHILS PERCENT AUTO 0 % (0-2); EOSINOPHILS ABSOLUTE AUTO 0.17 K/mm3 (0.00-0.68); EOSINOPHILS PERCENT AUTO 1 % (0-6); Hemoglobin 12.5 g/dL (11.5-16.0); IMMATURE GRAN ABSOLUTE AUTO 0.47 K/mm3 (0.00-0.10); IMMATURE GRAN PERCENT AUTO 2 % (0-1); LYMPHOCYTES PERCENT AUTO 5 % (21-46); MONOCYTES PERCENT AUTO 11 % (4-13); Mean Corpuscular HGB 32.1 pg (26.0-34.0); Mean Corpuscular HGB Conc 32.1 g/dL (31.5-36.5); Mean Corpuscular Volume 100 fL (80-100); Mean Platelet Volume 10.5 fL (9.1-12.4); NEUTROPHILS ABSOLUTE AUTO 23.07 K/mm3 (1.96-9.15); NEUTROPHILS PERCENT AUTO 81 % (41-73); Platelet Count 151 K/mm3 (150-400); RDW Coefficient Variation 13.2 % (11.7-14.2); RDW Standard Deviation 49.1 fL (35.1-46.3); White Blood Cell Count 28.42 K/mm3 (4.00-11.30)
[2022-01-29 06:23] LABS: Bun/Creatinine Ratio 54.2 (12.0-20.0); Calcium, Blood 8.9 mg/dL (8.5-10.1); Creatinine, Blood 0.41 mg/dL (0.40-1.00)
--- NOTE | 2022-01-29 18:08 | NUR ---
SHIFT SUMMARY A&O X 4. VSS. TPN INFUSING INTO L UPPER ARM PICC LINE. PT WAS UP IN CHAIR FOR APPROX 2 HRS THIS MORNING. C/O PAIN MEDICATED PER EMAR WITH GOOD RESULTS. ADDED OXYCODONE FOR BREAKTHROUGH PAIN TO THE DILAUDID ALREADY ORDERED. PT C/O ABD PAIN AND BACK PAIN. SHE DENIED NAUSEA THIS SHIFT. SHE IS 1 PERSON MIN ASSISIT TO BSC WHEN SHE WANTS TO GET TO BSC OTHERWISE SHE IS INCONTINENT OF URINE. IS PLEASANT & COOPERATIVE WITH ALL CARE.
[2022-01-30 05:37] LABS: Hemoglobin 11.9 g/dL (11.5-16.0); Mean Corpuscular HGB 32.2 pg (26.0-34.0); Mean Corpuscular HGB Conc 33.1 g/dL (31.5-36.5); Mean Corpuscular Volume 97 fL (80-100); Mean Platelet Volume 10.5 fL (9.1-12.4); Platelet Count 169 K/mm3 (150-400); RDW Coefficient Variation 12.8 % (11.7-14.2); RDW Standard Deviation 45.5 fL (35.1-46.3); White Blood Cell Count 28.11 K/mm3 (4.00-11.30)
[2022-01-30 05:47] LABS: Albumin, Blood 1.9 g/dL (3.4-5.0); Anion Gap 4 mmol/L (6-16); Blood Urea Nitrogen 16 mg/dL (8-24); Bun/Creatinine Ratio 39.6 (12.0-20.0); CO2, Blood 38 mmol/L (21-32); Calcium, Blood 8.4 mg/dL (8.5-10.1); Chloride, Blood 91 mmol/L (98-108); Glomerular Filtration Rate 101 (60-); Glucose, Blood 141 mg/dL (70-99); Magnesium, Blood 2.1 mg/dL (1.6-2.4); Phosphorus, Blood 2.3 mg/dL (2.5-4.9); Sodium, Blood 133 mmol/L (136-145)
--- NOTE | 2022-01-30 07:44 | NUR ---
SHIFT SUMMARY; PT WAS NPO AFTER MIDNIGHT LAST NIGHT ASIDE FROM DRINKING ORAL CONTRAST FOR CT THIS MORNING. THE ORAL CONTRAST MADE THE PT NAUSEOUS, ZOFRAN WAS GIVEN. PT CONTINUES TO COMPLAIN OF ABDOMINAL PAIN AND LOWER BACK PAIN, DILAUDID, OXYCODONE AND TRAMADOL GIVEN LAST NIGHT WITH LITTLE RELIEF. PT RESTED IN BED ALL NIGHT LONG, STATED SHE WAS TOO WEAK TO USE BEDSIDE COMMODE SO SHE WAS INCONTINENT. PT IS CURRENTLY BACK IN ROOM FROM CT WITH AT BEDSIDE, THE BED IS IN THE LOWEST POSITION AND THE CALL LIGHT IS ON HER LAP.
[2022-01-30 10:48] LABS: International Normalized Ratio 1.05
--- NOTE | 2022-01-30 19:48 | NUR ---
SHIFT SUMMARY PT A&OX4 AND COOPERATIVE OF CARE. PT'S PAIN HAS BEEN DIFFICULT TO MANAGE. MEDICATED PER EMAR WITH LITTLE EFFICACY. PT HAD ADB DRAIN PLACED TODAY. DRAINING STAFFORD, THIN SECRETIONS. PT VERBALIZED ABD PAIN RELIEF WHEN RETURNING FROM PROCEDURE. PT WAS ABLE TO SLEEP FOR A COUPLE HOURS AFTER PROCEDURE. PT ATE VERY LITTLE. PT WAS ABLE TO SIT UP IN CHAIR IN AFTERNOON AND USE BEDSIDE COMMODE BEFORE RETURNING TO BED. PT HAS HAD FAMILY AT BEDSIDE DURING AFTERNOON. REPORT GIVEN TO SUPERVISOR SCREEN MAKING NURSE.
--- NOTE | 2022-01-31 05:20 | NUR ---
SUMMARY: PT A/OX4, CALLS APPROPRIATELY TO SPECIFY NEEDS AND IS PLEASANT AND COOPERATIVE W/CARE. SHE'S 1PA TO BSC W/TURN SCHEDULE MAINTAINED FOR SBD. PT APPEARS CACHECTIC W/PILLOWS PLACED TO BONY PROMINENCES AND MEPILEX IN PLACE TO COCCYX. PT HAD LOOSE STOOLS X2 AND HAS URGENCY TO VOID W/FREQUENCY. ATTENDS CHANGED PRN FOR X1 URINARY INCONTINENCE. CPN CONT'S INUSING AT 75 ML/HR VIA MADELAINE PICC AND IV ABX RECIEVED PER EMAR. SHE CONT'S TO REPORT ABDO AND LOW BACK PAIN. PRN TRAMADOL, NORCO AND DILAUDID RECIEVED FOR TEMPORARY RELIEF. AT ONE POINT SHE DESCRIBED MID UPPER ABDO PAIN THAT WAS SEEMINGLY EPIGASTRIC IN NATURE, GI COCKTAIL RX'D AND RECIEVED FOR GOOD EFFECT. URESIL DRAIN IS PATENT AND INTACT TO L.POSTERIOR FLANK, ACCORDIAN REMAINS COMPRESSED AND STAFFORD FOUL SMELLING DRAINAGE OBSERVED. SHE REMAINS ON 3L O2 VIA NC W/O S/S SOB OR RESP DISTRESS. NO ACUTE CHANGES, VSS/AFEBRILE. WCTM AND REPORT TO DAY. RN.
[2022-01-31 06:18] LABS: Bun/Creatinine Ratio 41.6 (12.0-20.0); Calcium, Blood 7.9 mg/dL (8.5-10.1); Creatinine, Blood 0.39 mg/dL (0.40-1.00); Magnesium, Blood 2.1 mg/dL (1.6-2.4); Phosphorus, Blood 3.1 mg/dL (2.5-4.9); Potassium, Blood 4.2 mmol/L (3.5-5.5)
--- NOTE | 2022-01-31 18:38 | NUR ---
SHIFT SUMMARY: PAYIENT A&OX4. PLEASANT AND COOPERATIVE WITH CARE. USES CALL LIGHT APPROPRIATELY AND ABLE TO ADVOVATES FOR HER NEEDS. PATIENT IS CONT/INC FOR BLADDER ANS SOMETIMES ABLE TO USES BSC WITH 1P ASSIST. PATIENT WAS ABLE TO TOLERATE SITTING UP IN CHAIR FOR ABOUT COUPLE HOURS THIS SHIFT AND REQUESTED BACK IN BED. REPOSITIONED Q2 HRS OR SOONER NEEDED FOR COMFORT. PATIENT CONTINUES TO REPORT ABDOMINAL AND BACK PAIN T/O SHIFT. RECEIVED PRN PAIN MEDS PER EMAR. REPORTS OF BEING NAUSEOUS BEGINNING OF SHIF BUT NO VOMITING. RECEIVED NAUSEA MEDS. URECIL DRAIN IS PATENT AND INTACT TO L POSTERIOR FLANK, DRAINAIGE WITH STAFFORD COLOR AND ACCORDIAN REMAIN DECOMPRESS. PICC LINE TO MADELAINE INFUSING CPN AT 75 MLS/HR. VITAL SIGNS REVEIWED. AND CALL LIGHT IN REACH.
--- NOTE | 2022-02-01 05:50 | NUR ---
SUMMARY: PT A/OX4, IS PLEASANT AND COOPERATIVE W/CARE AND SPECIFIES NEEDS. SHE CALLS FREQUENTLY FOR REPEATED NONACUTE DEMANDS AND ADMITS TO ANXIETY RE:PAIN AND DRAIN. SHE CALMS W/REASSURANCE AND EXPLANATION BUT DOES HAVE DIFFICULTY RELAXING AND SLEEPING. MELATONIN WAS RECIEVED AT HS FOR MINIMAL EFFECT. PRN ROXICODONE RECIEVED APPROX Q6H FOR C/O R.LOWER ABDO AND BACK PAIN. MEPILEXES IN PLACE TO BONY PROMINENCES, PILLOWS PLACED FOR CUSHIONING, TURN SCHEDULE MAINTAINED AND KPAD APPLIED FOR SOME RELIEF. URESIL DRAIN REMAINS INTACT AND PATENT TO L.POSTERIOR FLANK W/SCANT AMT STAFFORD OUTPUT. PUREWIC TRIALED BUT THIS PROVIDED DISCOMFORT FOR HER AND SHE'D REPOSITION IT SO IT WAS NO LONGER EFFECTIVE. ATTENDS CHANGED PRN FOR INCONTINENCE AND PT USED BSC W/ASSIST FOR VOIDS AND X1 SMALL BM. CPN INFUSES VIA MADELAINE PICC AND IV ABX RECIEVED. NO ACUTE CHANGES, VSS/AFEBRILE. WCTM AND REPORT TO DAY RN.
--- NOTE | 2022-02-01 18:37 | NUR ---
SHIFT SUMMARY: PATIENT CONTINUES TO REPORT OF HAVING PAIN ON HER R LOWER ABDOMEN AND LOWER BACK. MEDICATE PER EMAR WITH GOOD RELIEF. PATIENT ATE COUPLE BITE FOR BREAKFAST, DECLINE FOR LUNCH AND ATE ABOUT 10% FOR DINNER. REPORTS OF BEING NAUSEOUS AROUND NOON. RECEIVED PRN NAUSEA MEDS. POWER PICC LINE AND POWERGLIDE DRESSING CHANGED. URACIL DRAIN APPLIANCE WAS CHANGED TODAY. EMPTIED ABOUT 10 CC WITH STAFFORD COLOR OUTPUT. DRESSING IS INTACT TO LEFT POSTERIOR FLANK. CPN CONTINUE INFUSING AT 75 MLS/HR. PATIENT DECLINE TO GET UP IN THE CHAIR AND REQUESTED TO BE REMAIN IN BED. Q2 TURN FOR COMFORT. PATIENT HAS BEEN INC T/O SHIFT AND WEAR ATTENDS. RECEIVED SCHEDULED ANTIBIOTICS. VITAL SIGNS REVIEWED. CALL LIGHT IN REACH.
--- NOTE | 2022-02-02 04:53 | NUR ---
SHIFT SUMMARY; PT CONTINUES TO COMPLAIN OF PAIN THROUGHOUT THE SHIFT, MEDICATED WITH OXYCODONE AND DILAUDID PER EMAR WITH MINIMAL RELIEF. PT IS NAUSEOUS TONIGHT, MEDICATED WITH ZOFRAN AND REGLAN WITH GOOD RELIEF. PT REQUEST TO GET UP TO CHAIR TONIGHT. URACIL DRAIN WITH NO DRAINAGE TONIGHT. PT IS INCONTINENT TODAY, STATING SHE IS TO WEAK TO USE BSC TODAY. PT IS CURRENTLY PREPARING TO GET UP TO THE BEDSIDE CHAIR. CALL LIGHT WITHIN REACH.
[2022-02-02 05:56] LABS: BASOPHILS ABSOLUTE AUTO 0.11 K/mm3 (0.00-0.23); BASOPHILS PERCENT AUTO 0 % (0-2); EOSINOPHILS ABSOLUTE AUTO 0.07 K/mm3 (0.00-0.68); EOSINOPHILS PERCENT AUTO 0 % (0-6); Hematocrit 34.9 % (33.0-51.0); Hemoglobin 11.9 g/dL (11.5-16.0); IMMATURE GRAN ABSOLUTE AUTO 0.45 K/mm3 (0.00-0.10); IMMATURE GRAN PERCENT AUTO 1 % (0-1); LYMPHOCYTES ABSOLUTE AUTO 1.44 K/mm3 (0.84-5.20); LYMPHOCYTES PERCENT AUTO 4 % (21-46); MONOCYTES ABSOLUTE AUTO 2.08 K/mm3 (0.16-1.47); MONOCYTES PERCENT AUTO 6 % (4-13); Mean Corpuscular HGB 32.4 pg (26.0-34.0); Mean Corpuscular HGB Conc 34.1 g/dL (31.5-36.5); Mean Corpuscular Volume 95 fL (80-100); NEUTROPHILS ABSOLUTE AUTO 29.79 K/mm3 (1.96-9.15); NEUTROPHILS PERCENT AUTO 88 % (41-73); Platelet Count 268 K/mm3 (150-400); RDW Coefficient Variation 12.6 % (11.7-14.2); RDW Standard Deviation 44.3 fL (35.1-46.3); Red Blood Cell Count 3.67 M/mm3 (3.80-5.20); White Blood Cell Count 33.94 K/mm3 (4.00-11.30)
[2022-02-02 06:14] LABS: Triglycerides 95 mg/dL (30-160)
--- NOTE | 2022-02-02 17:24 | NUR ---
STUDENT NURSE ASHISH OBSERVED COMPLETING ASSESSMENT. AGREE WITH DOCUMENTED FINDINGS. PT CURRENTLY GONE FOR SURGERY.
--- NOTE | 2022-02-02 17:45 | NUR ---
PT BROUGHT FROM FLOOR TO DAY SURGERY FOR HER PROCEDURE.
--- NOTE | 2022-02-02 18:34 | NUR ---
02/02/22 1834 Coco Munson PLACED 02/02 AT 1810
--- NOTE | 2022-02-02 18:38 | NUR ---
STUDENT SHIFT SUMMARY: PT PLEASANT AND COOPERATIVE THROUGHOUT THE DAY. A&0 X4. LIQUID DIET. PT HAD MANY FAMILY VISITORS TODAY. PT WAS NAUTIOUS MOST OF THE DAY WITH SEVERAL BOUTS OF VOMITING. PT REPORTED 9 OR 10 OUT OF 10 PAIN CONSISTENTLY TODAY, AND CALLED FREQUENTLY FOR PAIN MEDS, FACES SCALE INDICATED PAIN CLOSER TO A 6 OUT OF 10 WITH GRIMACING/ CURLED POSTURE. PT WAS INCONTINENT OF BLADDER TODAY WITH WET ATTENDS CONTAINING YELLOW URINE. PT WENT TO SURGERY TO OPERATE ON INTRA ABDOMINAL ABSCESS AROUND 1700.
--- NOTE | 2022-02-02 20:00 | NUR ---
ASSUMED CARE OF PT AT 2000 FROM SURGERY PT VITALS STABLE AT THIS TIME. RESPIRATORY THERAPY, ANESTHESIOLOGIST, AND SURGEON IN ROOM AT THIS TIME. SEDATED AND INTUBATED AC/VC 16/350/5/30% BRUISING APPARENT THROUHGOUT ENTIRE BODY AND AT DIFFERENT STAGES OF HEALING. OSTOMY RED AND ROUND. ALEXY FUENTES IN PLACE AND DRAINING BLOOD TINGED FLUID. COOLEY CATHETER IN PLACE AND DRAINING TO GRAVITY. NG TUBE IN PLACE WITH GREEN FLUID UPON SUCTION. SEE ASSESSMENT FOR ALL OTHER INFORMATION.
[2022-02-02 20:53] LABS: Source, Urine Foley catheter
[2022-02-02 20:56] LABS: Appearance, Urine Clear (Clear); Bilirubin, Urine Neg (Neg); Blood, Urine 2+ (Neg); Color, Urine Yellow (P-Yellow); Glucose Qualitative, Urine 1+ (Neg); Ketones, Urine Neg (Neg); Leukocyte Esterase, Urine Neg (Neg); Nitrite, Urine Neg (Neg); Protein, Urine 2+ (Neg); Urobilinogen, Urine NORM (Normal)
[2022-02-02 21:04] LABS: Bacteria Rare /hpf; Mucus Light (0-Heavy); Red Blood Cells, Urine 0-2 /hpf (0-2); Renal Epithelial Rare /hpf (0-Rare); Squamous Epithelial Cells Rare /hpf (Few); White Blood Cells, Urine 0-2 /hpf (0-5)
[2022-02-03 05:23] LABS: BASOPHILS ABSOLUTE AUTO 0.13 K/mm3 (0.00-0.23); BASOPHILS PERCENT AUTO 0 % (0-2); EOSINOPHILS ABSOLUTE AUTO 0.06 K/mm3 (0.00-0.68); EOSINOPHILS PERCENT AUTO 0 % (0-6); Hematocrit 31.6 % (33.0-51.0); Hemoglobin 10.6 g/dL (11.5-16.0); IMMATURE GRAN ABSOLUTE AUTO 0.67 K/mm3 (0.00-0.10); IMMATURE GRAN PERCENT AUTO 2 % (0-1); LYMPHOCYTES PERCENT AUTO 2 % (21-46); MONOCYTES ABSOLUTE AUTO 1.39 K/mm3 (0.16-1.47); MONOCYTES PERCENT AUTO 4 % (4-13); Mean Corpuscular HGB 31.8 pg (26.0-34.0); Mean Corpuscular HGB Conc 33.5 g/dL (31.5-36.5); Mean Corpuscular Volume 95 fL (80-100); Mean Platelet Volume 10.3 fL (9.1-12.4); NEUTROPHILS ABSOLUTE AUTO 33.01 K/mm3 (1.96-9.15); NEUTROPHILS PERCENT AUTO 91 % (41-73); Platelet Count 334 K/mm3 (150-400); RDW Coefficient Variation 12.9 % (11.7-14.2); RDW Standard Deviation 44.5 fL (35.1-46.3); Red Blood Cell Count 3.33 M/mm3 (3.80-5.20); White Blood Cell Count 36.06 K/mm3 (4.00-11.30)
[2022-02-03 05:42] LABS: Albumin, Blood 1.4 g/dL (3.4-5.0); Albumin/Globulin Ratio 0.4 (0.8-1.8); Bilirubin, Total 0.8 mg/dL (0.1-1.0); Calcium, Blood 7.3 mg/dL (8.5-10.1); Creatinine, Blood 0.54 mg/dL (0.40-1.00); Globulin, Blood 3.6 g/dL (2.2-4.0); Potassium, Blood 4.6 mmol/L (3.5-5.5)
--- NOTE | 2022-02-03 06:04 | NUR ---
END OF SHIFT SUMMARY PT WAS ABLE TO TOLERATE VENT WITHOUT SEDATION. AC/VC 16/350/5/30% WITH SPO2 >95. LUNG SOUNDS MOIST AND DIMINISHED IN BASES BILATERALLY. A/O X4. PT IS ABLE TO WRITE ON NOTE PAD FOR COMMUNICATION. PAIN MANAGMENT CONTINUES TO BE AN ISSUE. DILAUDID AND MORPHINE GIVEN AT ALTERNATE TIMES WITH MINIMAL SUCCESS. BP STABLE WITH HR IN 110'S. SINUS TACH. PT AND FAMILY ARE VERY GALAN WITH NOT HAVING BLOOD PRODUCTES D/T BAHAI. DRAIN REMOVED DURING SURGERY YESTERDAY WITH SMALL LACERATION STILL PRESENT. TEGADERM COVERED AFTER CLEANSE. COLOSTOMY BAG INTACT WITH SCANT DRAINAGE. STOMA RED AND ROUND WITH NO APPARENT ISSUES. COOLEY CATH DRAINING TO GRAVITY, YELLOW/LIGHT SHANNON URINE. WILL CONTINUE TO MONITOR UNTIL SHIFT REPORT GIVEN.
--- NOTE | 2022-02-03 09:20 | NUR ---
PT EXTUBATED TO 4L NC AT 0914. QUICKLY TURNED DOWN TO 3L NC. PT IS A/O X4, ABLE TO SPEAK WITH DR. FITCH WITHOUT ISSUE. NO SIGN OF DISTRESS.
[2022-02-03 10:39] LABS: Phosphorus, Blood 3.9 mg/dL (2.5-4.9)
--- NOTE | 2022-02-03 13:22 | NUR ---
PT A/O X4. ON IT NETWORK ARCHITECT AND WORKING WELL FOR PT. TOLERATING ICE CHIPS THAT WERE OK'D BY DR. QUINONEZ. PT IS SURGICAL STATUS AND WILL BE GOING TO ROOM 227, REPORT GIVEN TO CAROL WILKES WHO WILL ASSUME CARE. PHYSICAL THERAPY HERE TO WORK WITH PT NOW THEN WILL TRANSFER.
--- NOTE | 2022-02-03 15:40 | NUR ---
SHIFT SUMMARY: PATIENT WAS TRANSFERRED FROM ICU TO THIS FLOOR. POD 1 OPEN COLECTOMY WITH COLOSTOMY PATIENT IS A&OX4. VS ARE WNL AND IS ON NC WITH >90% OXYGEN SATS. HER OSTOMY HAS SCANT AMOUNT OF LIGHT RED OUTPUT IN IT WITH THE STOMA BEING MOIST/PINK. HER ABD MIDLINE INCISION IS TENDER BUT IS C/D/I. PATIENTS MARYLOU DRAIN IN HER RLQ HAS LIGHT RED OUTPUT WITH BULB COMPRESSED. SHE IS TOLERATING SMALL AMOUNTS OF PO INTAKE OF ICE CHIPS. HER NG TUBE IS ON LOW INTERMITTENT SUCTION WITH DARK BROWN OUTPUT. PAIN IS MANAGED WITH METAL FLOORING INSTALLER DILAUDID. HER COOLEY IS DRAINING PER GRAVITY WITH DARK YELLOW URINE OUTPUT. SHE IS LAYING IN BED WATCHING TV WITH CALL LIGHT IN REACH.
--- NOTE | 2022-02-03 23:07 | NUR ---
TELE TELE CALLED AT 2205 INFORMING OF A 6 SECOND RUN OF SVT. CHECKED ON PATIENT AND TOOK VITAL SIGNS. BP 153/67 HR 110, TEMP 98.2. PATIENT DENIED CHEST PAIN. DID HAVE SOME SHORTNESS OF BREATH, PATIENT STATED SHE WAS MOVING AROUND IN BED TRYING TO GET COMFOTABLE. THIS RN NOTIFIED HOPITALIST AND WAS ORDERED TO MAKE SURE CHEM PANEL WAS ORDERED FOR MORNING LABS, AND CONTINOUS PULSE OX WAS ORDERED.
--- NOTE | 2022-02-04 04:01 | NUR ---
SHIFT SUMMARY PATIENT POD2 COLLECTOMY W/ OSTOMY PLACEMENT. OSTOMY HAS MINIMAL SEROSANGUINEOUS OUTPUT. VERONICA DRESSING TO MIDLINE C/D/I. MARYLOU DRAIN TO RLQ WITH SEROUSANGUINEOUS OUTPUT. NG TUBE TO LOW INTERMITTEN SUCTION. COPIOUS AMOUNTS OF GREEN/BROWN DRAINAGE. COOLEY CATHETER PATENT AND DRAINING YELLOW DARK URINE. PATIENT REPORTS NAUSEA THIS SHIFT MEDICATED PER EMAR. BONY PROMINENCE TO SPINAL AREA COVERED WITH MEPILEX X2, C/D/I. PATIENT REPOSTIONS EASILY THROUGHTOUT SHIFT. PATIENT ON 3L NC SATS ABOVE 92%. TELE IN PLACE SINUS TACH AT 108 PER ROBOTICS ENGINEER. RUN OF SVT REPORTED BY ROBOTICS ENGINEER SEE PREVIOUS NOTE. TPN INFUSING IN PICC. BLOOD GLUCOSE Q6, STABLE. VSS, PATIENT ABLE TO USE CALL LIGHT AND MAKE NEEDS KNOWN. WILL REPORT TO DAY RN.
[2022-02-04 05:19] LABS: Magnesium, Blood 2.4 mg/dL (1.6-2.4); Phosphorus, Blood 2.6 mg/dL (2.5-4.9)
[2022-02-04 06:03] LABS: Bun/Creatinine Ratio 52.2 (12.0-20.0); Calcium, Blood 7.8 mg/dL (8.5-10.1); Creatinine, Blood 0.4 mg/dL (0.40-1.00); Potassium, Blood 3.5 mmol/L (3.5-5.5)
--- NOTE | 2022-02-04 17:24 | NUR ---
SHIFT SUMMARY POD 1 COLECTOMY WITH NEW OSTOMY MARYLOU DRAIN REMAINS PATENT MINIMAL OUTPUT TODAY. PICCO MIDLINE CDI. OSTOMY PINK AND BEEFY, SCANT AMOUNT SEROSANGUINOUS DRAINAGE IN BAG. NO FLATUS TODAY. COOLEY REMAINS PATENT AND DRAINING. PT HAS BEEN VISITING WITH FAMILY AND REPOSITIONING IN BED. 150 DARK BROWN/GREEN OUTPUT FROM NGTUBE THIS SHIFT. PT HAS DENIED PAIN, USING HER TECHNICAL SUPPORT COORDINATOR MINIMALLY TODAY. PT EAGER TO WORK WITH THERAPY EACH DAY.
--- NOTE | 2022-02-05 05:03 | NUR ---
SHIFT SUMMARY POD 3 COLLECTOMY, WITH OSTOMY. VERONICA TO MIDLINE C/D/I. MARYLOU TO RLQ WITH PINK DRAINAGE, ABD MILDLY DISTENDED WITH ABSENT BOWELSOUNDS. NO OUTPUT IN OSTOMY. COOLEY IS DRAINING TO GRAVITY DARK YELLOW, CLEAR URINE. NOTED THAT THERE WAS LEAKING COMING FROM CATHETER, PAITIENT WAS CLEANED UP AND CHANGED. PATIENT REPOSIIONS WITH MINIMAL ASSISTANCE, FLOATED ON PILLOWS. MEPILEX X2 TO COCCXY, AND SPINAL AREA. LOTION RUBBED ON BACK FOR COMFORT T/O SHIFT. PATIENT ON 3 L NC, PER PATIENT THIS IS HER BASELINE AT HOME. PATIENT DENIES SOB, CHEST PAIN. ENCOURAGED TO USE IS. PATIENT IS COUGHING UP BROWN SPUTUM. NG TUBE DRAINING LARGE AMOUNTS OF DARK BROWN LIQUID. PICC LINE TO MADELAINE, INFUSING CPN. CONTINUING ABX TREATMENT. PATIENT AOX4 USES CALL LIGHT APROPRIATELY. WILL REPORT TO DAY RN.
[2022-02-05 08:53] LABS: Magnesium, Blood 2.2 mg/dL (1.6-2.4); Phosphorus, Blood 2.8 mg/dL (2.5-4.9)
[2022-02-05 09:38] LABS: BASOPHILS ABSOLUTE AUTO 0.04 K/mm3 (0.00-0.23); BASOPHILS PERCENT AUTO 0 % (0-2); EOSINOPHILS ABSOLUTE AUTO 0.21 K/mm3 (0.00-0.68); EOSINOPHILS PERCENT AUTO 1 % (0-6); Hematocrit 26.3 % (33.0-51.0); Hemoglobin 8.5 g/dL (11.5-16.0); IMMATURE GRAN ABSOLUTE AUTO 0.22 K/mm3 (0.00-0.10); IMMATURE GRAN PERCENT AUTO 1 % (0-1); LYMPHOCYTES ABSOLUTE AUTO 1.01 K/mm3 (0.84-5.20); LYMPHOCYTES PERCENT AUTO 6 % (21-46); MONOCYTES ABSOLUTE AUTO 1.12 K/mm3 (0.16-1.47); MONOCYTES PERCENT AUTO 6 % (4-13); Mean Corpuscular HGB 31.3 pg (26.0-34.0); Mean Corpuscular HGB Conc 32.3 g/dL (31.5-36.5); Mean Corpuscular Volume 97 fL (80-100); Mean Platelet Volume 10.1 fL (9.1-12.4); NEUTROPHILS ABSOLUTE AUTO 15.46 K/mm3 (1.96-9.15); NEUTROPHILS PERCENT AUTO 86 % (41-73); Platelet Count 432 K/mm3 (150-400); RDW Standard Deviation 46.5 fL (35.1-46.3); Red Blood Cell Count 2.72 M/mm3 (3.80-5.20); White Blood Cell Count 18.06 K/mm3 (4.00-11.30)
[2022-02-05 09:50] LABS: Bun/Creatinine Ratio 48.1 (12.0-20.0); Creatinine, Blood 0.37 mg/dL (0.40-1.00); Potassium, Blood 3.7 mmol/L (3.5-5.5)
--- NOTE | 2022-02-05 17:27 | NUR ---
SHIFT SUMMARY POD 2 OPEN COLECTOMY WITH COLOSTOMY. OSTOMY PINK AND BEEFY, NO OUTPUT, NO FLATUS. NG TUBE 450ML OF BROWN/GREEN LIQUID DURING SHIFT. CPN INFUSING. PT UP TO CHAIR FOR MOST OF SHIFT, AMBULATED PATIENT TO HALLWAY AND BACK. PT NEEDED ONE ASSIST FOR CORD MANAGEMENT BUT OTHERWISE WAS STRONG ON HER FEET AND ABLE TO AMBULATE ON HER OWN. MARYLOU DRAIN HAD 60 OUT OF SEROSANGUINOUS DRAINAGE, THE DRAINAGE APPEARS CLEARER IN COLOR TODAY THAN ON MY ASSESSMENT YESTERDAY. PT CONTINUES TO BE ENCOURAGE WITH AMBULATION AND WORKING WITH THERAPY.
--- NOTE | 2022-02-06 05:02 | NUR ---
SHIFT SUMMARY PT HASNT SLEPT AT ALL TONIGHT. AOX4. POD 3-FOR APPY & BOWEL RESECTION. VSS. SPO2 >90% ON 2L O2. REPORTS 9/10 PAIN IN RLQ ABD & TAILBONE, REPOSITIONED FREQUENTLY & PT USED ORDNANCE ARTIFICER PUMP PRN. RLQ MARYLOU DRAIN c 20ML ORANGE/PINK CLEAR DRAINAGE. LLQ COLOSTOMY W/O OUTPUT THIS SHIFT. HYPOACTIVE BT. DENIES N/V. NPO. NG TUBE c MOD AMOUNT BROWN OUTPUT. MIDLINE VERONICA DRESSING C/D/I. TPN RUNNING @75ML/HR. 2PER MAX ASSIST TO BSC c GB & FWW. PT ABLE TO MAKE NEEDS KNOWN, CALL LIGHT IN REACH.
[2022-02-06 06:30] LABS: BASOPHILS ABSOLUTE AUTO 0.07 K/mm3 (0.00-0.23); BASOPHILS PERCENT AUTO 0 % (0-2); EOSINOPHILS ABSOLUTE AUTO 0.31 K/mm3 (0.00-0.68); EOSINOPHILS PERCENT AUTO 2 % (0-6); Hematocrit 25.6 % (33.0-51.0); Hemoglobin 8.6 g/dL (11.5-16.0); IMMATURE GRAN ABSOLUTE AUTO 0.26 K/mm3 (0.00-0.10); IMMATURE GRAN PERCENT AUTO 2 % (0-1); LYMPHOCYTES ABSOLUTE AUTO 1.08 K/mm3 (0.84-5.20); LYMPHOCYTES PERCENT AUTO 6 % (21-46); MONOCYTES ABSOLUTE AUTO 0.96 K/mm3 (0.16-1.47); MONOCYTES PERCENT AUTO 6 % (4-13); Mean Corpuscular HGB 32.6 pg (26.0-34.0); Mean Corpuscular HGB Conc 33.6 g/dL (31.5-36.5); Mean Corpuscular Volume 97 fL (80-100); NEUTROPHILS ABSOLUTE AUTO 14.43 K/mm3 (1.96-9.15); NEUTROPHILS PERCENT AUTO 84 % (41-73); Platelet Count 494 K/mm3 (150-400); Red Blood Cell Count 2.64 M/mm3 (3.80-5.20); White Blood Cell Count 17.11 K/mm3 (4.00-11.30)
[2022-02-06 06:51] LABS: Bun/Creatinine Ratio 59.6 (12.0-20.0); Calcium, Blood 8.4 mg/dL (8.5-10.1); Creatinine, Blood 0.37 mg/dL (0.40-1.00); Potassium, Blood 4.1 mmol/L (3.5-5.5)
--- NOTE | 2022-02-06 18:05 | NUR ---
SUMMARY NO ACUTE CHANGES T/O SHIFT. PT HAS SAT UP IN RECLINER T/O DAY, STATING MORE COMFORTABLE THAN BED. DOES NOT FEEL WELL, DID NOT SLEEP LAST NIGHT OR AT ALL THIS SHIFT. VOIDING IN ATTENDS, STANDS FOR ATTENDS CHANGE W/FWW. WEAK. VERONICA DRESSING TO MIDLINE ABD CDI. MARYLOU PUTTING OUT SS DRAINAGE. OSTOMY BEEFY PINK, PT STATED ABDOMEN "RUMBLING" BUT HAVE NOT NOTED ANY OUTPUT YET. NG PUTTING OUT GREENISH LIQUID TO LIS. TPN INFUSING PER ORDERS, ALONG W/LOCATOR AND ABX. PT POSITIONED FOR COMFORT W/MULTIPLE PILLOWS. CALL LIGHT IN REACH.
--- NOTE | 2022-02-07 04:43 | NUR ---
SHIFT SUMMARY AOX4. VSS. POD 4 FOR COLOSTOMY. MARYLOU DRAIN LIGHT PINK SEROSANGUINOUS DRAINAGE. NO OUTPUT COLOSTOMY. BT ACTIVE. PT REPORTS FEELS "TUMMY RUMMBLING". DENIES PASSING GAS. NG TUBE LOW INT SUCTION c MIN AMOUNT BROWN/GREEN DRAINAGE. L NARES HAS PRESSURE SORE FROM NG TUBE, WILL INFORM ONCOMING NURSE. MIDLINE VERONICA DRESSING C/D/I. PT HAS BEEN INCONT OF URINE, ATTENDS CHANGED PRN. CALL LIGHT IN REACH & PT ABLE TO MAKE NEEDS KNOWN.
[2022-02-07 06:56] LABS: Anion Gap 4 mmol/L (6-16); Blood Urea Nitrogen 20 mg/dL (8-24); Bun/Creatinine Ratio 46.4 (12.0-20.0); CO2, Blood 34 mmol/L (21-32); Calcium, Blood 8.3 mg/dL (8.5-10.1); Chloride, Blood 101 mmol/L (98-108); Creatinine, Blood 0.43 mg/dL (0.40-1.00); Glomerular Filtration Rate 99 (60-); Glucose, Blood 135 mg/dL (70-99); Magnesium, Blood 2.4 mg/dL (1.6-2.4); Phosphorus, Blood 3.3 mg/dL (2.5-4.9); Potassium, Blood 4.4 mmol/L (3.5-5.5); Sodium, Blood 139 mmol/L (136-145); Triglycerides 61 mg/dL (30-160)
--- NOTE | 2022-02-07 09:41 | NUR ---
ASSEMED CARE OF PT AT THIS TIME. PT HAS NOT ATTEMPTED TO VOID SINCE COOLEY REMOVED, REPORTS SHE DOESN'T FEEL SHE HAS TO. REMINDED PT THAT WE NEED TO ATTEMP OR BLADDER SCAN PRIOR TO 1030. HAT PLACED IN BATHROOM, ASKED PT TO CALL IF SHE VOIDS SO PVR CAN BE DONE. PT VERBALIZED UNDERSTANDING.
--- NOTE | 2022-02-07 09:47 | NUR ---
ASSUMED CARE OF PT AT THIS TIME. DR WEISS IN ROOM, NO NEEDS AT THIS TIME PER PT. PT APPEARS TO BE RESTING COMFORTABLY IN CHAIR.
--- NOTE | 2022-02-07 15:47 | NUR ---
SHIFT SUMMARY: POD 4 COLOSTOMY WITH OSTOMY NO SIGNIFICANT CHANGES. PATIENT IS A&OX4. VS ARE WNL AND IS ON HER BASELINE OXYGEN WHICH IS 2L NC WITH >90% OXYGEN SATS. MARYLOU DRAIN HAS LIGHT RED OUTPUT IN THE BULB. OSTOMY HAS SMALL RED/LIQUID BROWN OUTPUT. MIDLINE IS C/D/I. SHE IS A SBA WITH FWW AND GAIT BELT TO THE BATHROOM. SHE IS TOLERATING PO INTAKE AND IS VOIDING. CALLS APPROPRIATELY. SHE IS SITTING UP IN BED WITH CALL LIGHT IN REACH.
--- NOTE | 2022-02-07 16:22 | NUR ---
PATIENTS NG TUBE WAS CLAMPED FOR ABOUT 2 HOURS AND THEN RE-CONNECTED BACK TO SUCTION. THE ONLY OUTPUT WAS CLEAR/LIGHT GREEN LIQUID. THEN FLUSHED ABOUT 100 ML OF SALINE INTO THE NG TUBE AND WAS RE-CONNECTED AGAIN TO SUCTION WITH THE SAME OUTPUT COMING THROUGH THE NG TUBE. REPORTED BACK TO DR. QUINONEZ THE OUTPUT OF THE NG TUBE AND SHE SAID TO HAVE THE NG TUBE REMOVED. NG TUBE WAS REMOVED AND PATIENT TOLERATED IT WELL. DENIES NAUSEA OR VOMITING. SHE REPORTS BURPING "QUITE A BIT". PATIENT IS SITTING UP IN CHAIR WITH CALL LIGHT IN REACH.
--- NOTE | 2022-02-08 04:59 | NUR ---
SUMMARY NO NEW ISSUES NOTED. PT DRESSINGS C/D/I. PT REPORTS MINIMAL DISCOMFORT. PT HAS BEEN VOIDING WELL. PT AMBULATES WITH GB AND FWW. PT HAS BEEN AWAKE MOST OF SHIFT. PT DENIES SOB AND SPO2 >90%. CALL LIGHT IN REACH.
[2022-02-08 06:35] LABS: Hemoglobin 8.3 g/dL (11.5-16.0); Mean Corpuscular HGB 32.3 pg (26.0-34.0); Mean Corpuscular HGB Conc 33.2 g/dL (31.5-36.5); Mean Corpuscular Volume 97 fL (80-100); Mean Platelet Volume 9.8 fL (9.1-12.4); Platelet Count 587 K/mm3 (150-400); RDW Standard Deviation 46.5 fL (35.1-46.3); Red Blood Cell Count 2.57 M/mm3 (3.80-5.20)
--- NOTE | 2022-02-08 15:12 | NUR ---
SHIFT SUMMARY: POD 5 COLECTOMY WITH OSTOMY PATIENT IS A&OX4. VS ARE WNL AND IS ON HER BASELINE OXYGEN AT 2L NC WITH >90% OXYGEN SATS. PAIN IS MANAGED WITH PO ROXANOL AT THIS TIME. SHE WAS CHANGED TO A CLEAR LIQUID DIET AND HAS BEEN TOLERATING IT WELL WITHOUT NAUSEA OR VOMITING. HER OSTOMY OUTPUT HAS SOFT BROWN STOOL IN IT AND STOMA IS PINK. HER MARYLOU DRAIN HAS LIGHT RED OUTPUT IN THE COMPRESSED BULB. MIDLINE IS INTACT WITH GREEN LIGHT FLASHING ON VERONICA. SHE IS VOIDING AND PASSING GAS ALSO IN HER OSTOMY. SHE IS A SBA TO THE BATHROOM WITH A FWW AND GAIT BELT. CALLS APPROPRIATELY. CALL LIGHT WITHIN REACH. THE PLAN IS TO CONTINUE CLEAR LIQUIDS AND HAVE PAIN MANAGED WITH PO PAIN MEDICATIONS. EVENTUALLY WILL WANT TO GET HER BACK ON A REGULAR DIET WHEN APPROPRIATE. CONTINUE SHORT FREQUENT AMBULATION IN THE HALLWAYS.
--- NOTE | 2022-02-09 05:50 | NUR ---
SUMMARY PT HAS BEEN ABLE TO SLEEP FOR SEVERAL HOURS. PT PAIN MANAGED WELL PER EMAR. PT PT HAS BEEN AMBULATORY AND VOIDING WELL. PT OSTOMY PRODUCING BROWN LIQUID STOOL. PT DRESSING C/D/I. DRAIN PRODUCING SS FLUID. PT CURRENTLY AWAKE AND RESTING COMFORTABLY IN RECLINER. CALL LIGHT IN RICH.
--- NOTE | 2022-02-09 18:49 | NUR ---
SHIFT SUMMARY PT A/O X4; PLEASANT AND COOPERATIVE WITH CARE. PT HAD SMALL BOWEL RESECTION ON 02/02. MARYLOU DRAIN PUTTING OUT LIGHT COLORED FLUID. OSTOMY PUTTING OUT GAS AND LIQUID BM. PT TREATED PER EMR FOR PAIN. PT ON A CLEAR LIQUID DIET BUT ALSO RECEIVING TPN.
[2022-02-10 06:00] LABS: Hematocrit 25.7 % (33.0-51.0); Hemoglobin 8.5 g/dL (11.5-16.0); Mean Corpuscular HGB 32.1 pg (26.0-34.0); Mean Corpuscular HGB Conc 33.1 g/dL (31.5-36.5); Mean Corpuscular Volume 97 fL (80-100); Mean Platelet Volume 9.9 fL (9.1-12.4); Platelet Count 688 K/mm3 (150-400); RDW Coefficient Variation 13.3 % (11.7-14.2); RDW Standard Deviation 46.5 fL (35.1-46.3); Red Blood Cell Count 2.65 M/mm3 (3.80-5.20); White Blood Cell Count 13.53 K/mm3 (4.00-11.30)
--- NOTE | 2022-02-10 06:08 | NUR ---
SHIFT SUMMARY NO ACUTE CHANGES THROUGH THE NIGHT, PT HAS SLEPT IN THE RECLINER PER HER REQUEST, VSS, O2 VIA NC @ 2L, ABD DRSG C/D/I, 35 MLS SS FLUID NOTED IN MARYLOU DRAIN, PT HAS BEEN UP TO THE BSC WITH ASSISTANCE. VOIDING WNL, TOLERATING CLEAR LIQUID, PAIN MNG PER EMAR W/ROXYCODONE. WCTM, CALL LIGHT IN REACH,
[2022-02-10 06:34] LABS: Albumin, Blood 1.9 g/dL (3.4-5.0); Anion Gap 5 mmol/L (6-16); Blood Urea Nitrogen 13 mg/dL (8-24); Bun/Creatinine Ratio 31.6 (12.0-20.0); CO2, Blood 33 mmol/L (21-32); Calcium, Blood 7.8 mg/dL (8.5-10.1); Chloride, Blood 98 mmol/L (98-108); Creatinine, Blood 0.41 mg/dL (0.40-1.00); Glomerular Filtration Rate 100 (60-); Glucose, Blood 128 mg/dL (70-99); Phosphorus, Blood 2.6 mg/dL (2.5-4.9); Sodium, Blood 136 mmol/L (136-145)
--- NOTE | 2022-02-10 13:01 | NUR ---
REPORT PASSED TO CHUNG LUNA
--- NOTE | 2022-02-10 19:35 | NUR ---
SHIFT SUMMARY ASSUMED CARE AT APPROXIMATELY 1300 TODAY, PT IN CHAIR RESTING TALKING TO HER . POD7 EX LAP c NEW OSTOMY PLACEMENT. A/OX4, VSS, TOLERATING PO BUT REPORTING MINIMAL PO INAKE R/T POOR HUNGER SENSATION, DIETARY RECOMMENDING APPETITE STIMULANT IN WHICH SURGERY IS OK WITH. NO PAIN THIS SHIFT REPORTED BY THE PATIENT. OSTOMY PUTTING OUT SMALL AMOUT OF STOOL. 50 ML FROM MARYLOU DRAIN. NOT ACUTE EVENTS, REPORT GIVEN TO NOC RN
--- NOTE | 2022-02-11 00:44 | NUR ---
0000 HRS: PT OSTOMY DRESSING AND BAG CHANGED. VERONICA DRESSING CHANGED DUE TO LEAKAGE. ALL DRESSINGS REPLACED.
--- NOTE | 2022-02-11 01:12 | NUR ---
ASSUMPTION OF CARE REPORT TAKEN FROM LUIS FERNANDO DHILLON TO ASSUME CARE OF PT AT THIS TIME. PT RESTING, NO ACUTE CHANGES.
--- NOTE | 2022-02-11 04:51 | NUR ---
SHIFT SUMMARY ASSUMED CARE OF PT MID SHIFT. PT HAS RESTED MOST OF THE NIGHT. SHE COMPLAINS OF BACK PAIN. MEDICATED PER EMAR. IV NUTRITION INFUSING, AND IV ANTIBIOTICS PER ORDERS. OSOTOMY CHANGED BY PREVIOUS RN BEFORE I TOOK OVER CARE OF PT. ASSESSMENT IS UNCHANGED. VITALS STABLE. BED IN LOWEST POSITION, CALL LIGHT WITHIN REACH.
--- NOTE | 2022-02-11 19:24 | NUR ---
SHIFT SUMMARY PT A&OX4, VSS/2LNC. POD9, MIDLINE VERONICA, OSTOMY WITH LG BROWN CHUNKY OUTPUT, MARYLOU WITH SEROUS OUTPUT. STAND PIVOT TO BSC/UP TO CHAIR, BLE ELEVATED. VOIDING WELL, INCONTINENT ATTENDS W/BSC. PICC LINE INFUSING TPN AND NS/ABX PER EMAR. PAIN MANAGED WITH OXY 10 AND TYLENOL. WILL REPORT TO ONCOMING NOC RN.
--- NOTE | 2022-02-12 04:56 | NUR ---
SHIFT SUMMARY PT HAS RESTED OFF AND ON T/O THE NIGHT. OSTOMY CONTINUES TO PUT OUT BROWN LIQUID STOOL. MARYLOU PATENT AND DRAINING. PT CONTINUES TO HAVE PAIN, WHICH IS BEING MANAGED PER EMAR. IV ANTIBIOTICS AND IV NUTRITION CONTINUED. PT ABLE TO AMBULATE WITH FWW TO AND FROM [facility] WITH 1 PA ASSISTANCE. HOWEVER, AT TIMES PT REFUSES AND CHOOSES TO HAVE INCONTINENT VOIDS IN HER ATTENDS TO AVOID HAVING TO AMBULATE. PT EDUCATED ON THE IMPORTANCE OF PHYSICAL ACTIVITY FOR REHABILITATION/RECOVERY AND ENCOURAGED TO AMBULATE. PT ANXIOUS AT TIME AND EASILY FRUSTRATED. NO ACUTE CHANGES OVERNIGHT, ASSESSMENT UNCHANGED. BED IN LOWEST POSITON, CALL LIGHT WITHIN REACH.
--- NOTE | 2022-02-12 17:35 | NUR ---
SHIFT SUMMARY PT A&OX4, VSS/2LNC. POD10, MIDLINE VERONICA DRESSING/NO VAC, OSTOMY WITH LG BROWN CHUNKY OUTPUT, MARYLOU WITH SEROUS OUTPUT. STAND PIVOT TO BSC/UP TO CHAIR, BLE ELEVATED. VOIDING WELL, PT DID BETTER USING BSC TODAY AND NOT USING ATTENDS/INCONTINENCE. PICC LINE SL, TPN AND NS/ABX DC'D TODAY. PAIN MANAGED WITH OXY 10 AND TYLENOL. WILL REPORT TO ONCOMING NOC RN.
[2022-02-13 07:56] LABS: Hematocrit 25.9 % (33.0-51.0); Hemoglobin 8.5 g/dL (11.5-16.0); Mean Corpuscular HGB 32.2 pg (26.0-34.0); Mean Corpuscular HGB Conc 32.8 g/dL (31.5-36.5); Mean Corpuscular Volume 98 fL (80-100); Mean Platelet Volume 9.6 fL (9.1-12.4); Platelet Count 577 K/mm3 (150-400); RDW Coefficient Variation 14.3 % (11.7-14.2); RDW Standard Deviation 50.4 fL (35.1-46.3); Red Blood Cell Count 2.64 M/mm3 (3.80-5.20); White Blood Cell Count 13.02 K/mm3 (4.00-11.30)
[2022-02-13 08:18] LABS: Albumin, Blood 1.9 g/dL (3.4-5.0); Anion Gap 2 mmol/L (6-16); Blood Urea Nitrogen 13 mg/dL (8-24); Bun/Creatinine Ratio 35.1 (12.0-20.0); CO2, Blood 36 mmol/L (21-32); Calcium, Blood 8.1 mg/dL (8.5-10.1); Chloride, Blood 98 mmol/L (98-108); Creatinine, Blood 0.37 mg/dL (0.40-1.00); Glomerular Filtration Rate 103 (60-); Glucose, Blood 100 mg/dL (70-99); Phosphorus, Blood 2.2 mg/dL (2.5-4.9); Potassium, Blood 3.8 mmol/L (3.5-5.5); Sodium, Blood 136 mmol/L (136-145)
--- NOTE | 2022-02-13 20:06 | NUR ---
SHIFT SUMMARY S/P EX LAP WITH NEW OSTOMY, A/O X4, VSS, TOLERATING REGULAR DIET, PLAN TO DISCHARGE HOME TOMORROW WITH HOME HEALTH AFTER APPLIANCE CHANGE. NO ACUTE EVENTS THIS SHIFT. CALL LIGHT IN REACH, REPORT GIVEN TO SHERRIE WILKES.
--- NOTE | 2022-02-14 06:08 | NUR ---
SUMMARY NO NEW ISSUES NOTED. PT PAIN TX PER EMAR WITH RELIEF. PT OSTOMY PRODUCEING DARK GREEN LIQUIS STOOL. PT HAS VOIDED VIA BSC. PT DRESSING C/D/I. PT HAS BEEN SLEEPING WELL THIS SHIFT.
[2022-02-14] MEDS ORDERED: ONDA4ODT MM (07:34)
[2022-02-14] MEDS ORDERED: ROXICODONE INTENSOL PO (07:39)
[2022-02-14] MEDS ORDERED: Promod946 ML PO (07:41)
--- NOTE | 2022-02-14 16:21 | NUR ---
OSTOMY APPLIANCE CHANGE/EDUCATION APPLIANCE CHANGED WITH AND SON AT BEDSIDE, EDUCATION PROVIDED TO ALL THREE ON HOW PROCEDURE IS PERFORMED. CHECKED AN HOUR LATER AND SEAL AROUND STOMA APPEARS INTACT.
--- NOTE | 2022-02-14 16:58 | NUR ---
DISCHARGE SUMMARY DISCUSSED DISCHARGE INFORMATION WITH THE PATIENT//SON INCLUDING HOME MEDICATION CHANGES, HOME CARE, FOLLOW UP APPOINTMENTS, AND WALKED THEM THROUGH AN OSTOMY CHANGE WHILE CHANGING OUT HER APPLIANCE. PROVIDED THE FAMILY WITH INFORMATION REGARDING A LOCAL OSTOMY SUPPORT GROUP INCLUDING THE MEETING TIME AND LOCATION. HARD SCRIPT FOR PAIN PROVIDED TO PATIENT WHICH WAS HANDED TO HER . PICC LINE REMOVED AND LENGTH CONFIRMED WITH LENGTH INSERTED WHICH WERE BOTH 44. PT ESCORTED OUT TO [employer]IVATE [employer] TO GO HOME VIA WC. OSTOMY CHECKED PRIOR TO DISCHARGE TO CONFIRM APPLIANCE SEAL IN WHICH NO LEAKS DETECTED.
== END 2022-02-14 16:41 | disposition home or self-care (01) | DRG 853 ==
LOC: ER 16:24 → MEDS 16:25 → SURS 01-20 12:42 → MEDS 01-20 12:42 → ICUW 01-20 12:42 → MEDS 01-20 12:43 → ICUE 01-20 19:17 → MEDS 01-23 08:25 → ICUW 02-02 18:58 → SURS 02-03 15:37
PROVIDERS: Emergency Medicine; Family Medicine; Internal Medicine; Physician Assistant; Student in an Organized Health Care Education/Training Program; Surgery; ADMIT Family Medicine
PROC: 3E03329 Introduction of Other Anti-infective into Peripheral Vein, Percutaneous Approach (ICD-10-PCS; 2022-01-20)
PROC: 0DBN0ZZ Excision of Sigmoid Colon, Open Approach (ICD-10-PCS; 2022-02-02)
PROC: 0DTJ0ZZ Resection of Appendix, Open Approach (ICD-10-PCS; 2022-02-02)
PROC: 0DNM0ZZ Release Descending Colon, Open Approach (ICD-10-PCS; 2022-02-02)
PROC: 0DNL0ZZ Release Transverse Colon, Open Approach (ICD-10-PCS; 2022-02-02)
PROC: 0DN80ZZ Release Small Intestine, Open Approach (ICD-10-PCS; 2022-02-02)
PROC: 0DQ80ZZ Repair Small Intestine, Open Approach (ICD-10-PCS; 2022-02-02)
PROC: 0W9F30Z Drainage of Abdominal Wall with Drainage Device, Percutaneous Approach (ICD-10-PCS; 2022-02-02)
PROC: 0BH17EZ Insertion of Endotracheal Airway into Trachea, Via Natural or Artificial Opening (ICD-10-PCS; 2022-02-02)
PROC: 0DH67UZ Insertion of Feeding Device into Stomach, Via Natural or Artificial Opening (ICD-10-PCS; 2022-02-02)
PROC: 02HV33Z Insertion of Infusion Device into Superior Vena Cava, Percutaneous Approach (ICD-10-PCS; 2022-02-02)
PROC: 0DJD0ZZ Inspection of Lower Intestinal Tract, Open Approach (ICD-10-PCS; principal; 2022-02-02 16:30)
PROC: 5A1935Z Respiratory Ventilation, Less than 24 Consecutive Hours (ICD-10-PCS; 2022-02-03)
DX: A41.52 Sepsis due to Pseudomonas (principal); E43 Unspecified severe protein-calorie malnutrition; G92.8 Other toxic encephalopathy; K65.1 Peritoneal abscess; K57.20 Diverticulitis of large intestine with perforation and abscess without bleeding; K56.609 Unspecified intestinal obstruction, unspecified as to partial versus complete obstruction; J44.1 Chronic obstructive pulmonary disease with (acute) exacerbation; E87.1 Hypo-osmolality and hyponatremia; I47.20 Ventricular tachycardia, unspecified; K91.71 Accidental puncture and laceration of a digestive system organ or structure during a digestive system procedure; Z68.1 Body mass index [BMI] 19.9 or less, adult; R64 Cachexia; E87.3 Alkalosis; J96.11 Chronic respiratory failure with hypoxia; B37.0 Candidal stomatitis; B37.7 Candidal sepsis; A41.4 Sepsis due to anaerobes; E87.6 Hypokalemia; E83.39 Other disorders of phosphorus metabolism; T42.6X5A Adverse effect of other antiepileptic and sedative-hypnotic drugs, initial encounter; H40.9 Unspecified glaucoma; G47.00 Insomnia, unspecified; D69.6 Thrombocytopenia, unspecified; D75.839 Thrombocytosis, unspecified; D64.9 Anemia, unspecified; Z20.822 Contact with and (suspected) exposure to COVID-19; Z88.1 Allergy status to other antibiotic agents; Z88.8 Allergy status to other drugs, medicaments and biological substances; Z99.81 Dependence on supplemental oxygen; Z79.51 Long term (current) use of inhaled steroids; Z79.899 Other long term (current) drug therapy; Z79.2 Long term (current) use of antibiotics; Z79.891 Long term (current) use of opiate analgesic; Z87.440 Personal history of urinary (tract) infections; Z88.2 Allergy status to sulfonamides
CPT/HCPCS: 0241U; 36415; 36569; 49405; 71045; 74019; 74176; 74177; 74250; 80048; 80053; 80069; 81001; 82803; 82947; 83605; 83735; 83880; 83930; 83935; 84100; 84145; 84295; 84300; 84478; 84484; 85025; 85027; 85049; 85610; 85730; 87040; 87070; 87075; 87076; 87077; 87185; 87186; 87205; 88304; 88307; 93005; 93010; 94002; 94003; 94640; 94664; 94760; 94762; 96372; 96374; 96375; 96376; 97110; 97112; 97116; 97162; 97530; 98960; 99285-25; A9270; C1751; C9113; G0378; J0456; J0610; J1170; J1650; J1720; J2060; J2250; J2270; J2370; J2405; J2543; J2550; J2704; J2765; J2795; J2930; J3010; J3411; J3475; J3480; J7030; J7050; J7120; J7131; J7512; Q9967

== ENCOUNTER 2024-11-26 15:22 | Emergency (ER) | payer MEDICARE ==
[~2024-11-26] VITALS: Ht 160 cm; Wt 34.9 kg
[~2024-11-26 15:22] MED LIST changes: +LATA.005SO; +ONDA4ODT MM; +PRESERVISION A1 EAC2; +Promod946 ML PO; +ROXICODONE INTENSOL PO; +VITAMIN D310 MC4; +Vitamin C100 M1 PO
[2024-11-26 16:37] LABS: BASOPHILS ABSOLUTE AUTO 0.09 K/mm3 (0.00-0.23); BASOPHILS PERCENT AUTO 1 % (0-2); EOSINOPHILS ABSOLUTE AUTO 0.06 K/mm3 (0.00-0.68); EOSINOPHILS PERCENT AUTO 1 % (0-6); Hematocrit 42.6 % (33.0-51.0); Hemoglobin 14.8 g/dL (11.5-16.0); IMMATURE GRAN ABSOLUTE AUTO 0.04 K/mm3 (0.00-0.10); IMMATURE GRAN PERCENT AUTO 0 % (0-1); LYMPHOCYTES ABSOLUTE AUTO 1.43 K/mm3 (0.84-5.20); LYMPHOCYTES PERCENT AUTO 13 % (21-46); MONOCYTES ABSOLUTE AUTO 0.65 K/mm3 (0.16-1.47); MONOCYTES PERCENT AUTO 6 % (4-13); Mean Corpuscular HGB Conc 34.7 g/dL (31.5-36.5); Mean Corpuscular Volume 95 fL (80-100); NEUTROPHILS ABSOLUTE AUTO 9.19 K/mm3 (1.96-9.15); NEUTROPHILS PERCENT AUTO 80 % (41-73); NRBC ABSOLUTE 0.00 K/mm3 (0.00-0.02); NRBC Auto 0.0 /100 WBC (0.0-0.2); Platelet Count 219 K/mm3 (150-400); RDW Coefficient Variation 12.5 % (11.7-14.2); RDW Standard Deviation 44.2 fL (35.1-46.3)
[2024-11-26 17:09] LABS: Alanine Aminotransfer (ALT/SGP 26.0 U/L (12-78); Albumin, Blood 4.0 g/dL (3.4-5.0); Albumin/Globulin Ratio 1.1 (0.8-1.8); Anion Gap 5.0 mmol/L (3-11); Aspartate Aminotrans (AST/SGOT 19.0 U/L (12-37); Bilirubin, Total 1.0 mg/dL (0.1-1.0); Blood Urea Nitrogen 16.0 mg/dL (8-24); CO2, Blood 33.0 mmol/L (21-32); Calcium, Blood 9.3 mg/dL (8.5-10.1); Chloride, Blood 99.0 mmol/L (98-108); Creatinine, Blood 0.41 mg/dL (0.40-1.00); Globulin, Blood 3.5 g/dL (2.2-4.0); Glucose, Blood 130.0 mg/dL (70-99); Potassium, Blood 3.7 mmol/L (3.5-5.5); Sodium, Blood 133.0 mmol/L (136-145); Total Protein, Blood 7.5 g/dL (6.4-8.2)
[2024-11-26 18:53] LABS: Source, Urine Clean Catch
[2024-11-26 18:59] LABS: Bilirubin, Urine Neg (Neg); Color, Urine Yellow (P-Yellow); Glucose Qualitative, Urine Neg (Neg); Ketones, Urine 1+ (Neg); Leukocyte Esterase, Urine Neg (Neg); Protein, Urine 1+ (Neg); Specific Gravity, Urine 1.020 (1.003-1.022); Urobilinogen, Urine NORM (Normal)
[2024-11-26 20:04] VITALS: BP 132/78
[2024-11-26] MEDS ORDERED: CEPH500 PO (20:04)
== END 2024-11-26 20:30 | disposition home or self-care (01) ==
LOC: ER 15:22
PROVIDERS: Student in an Organized Health Care Education/Training Program
DX: N39.0 Urinary tract infection, site not specified (principal); J44.9 Chronic obstructive pulmonary disease, unspecified; Z99.81 Dependence on supplemental oxygen; Z88.1 Allergy status to other antibiotic agents
CPT/HCPCS: 71046; 80053; 81001; 83605; 83690; 83880; 84484; 85025; 87086; 93005; 93010; 99284-25; A9270